=== PATIENT | female | born 1970 | race Caucasian/White ===

== ENCOUNTER 2017-04-13 08:51 | Emergency (ER) | payer BC, SELFPAY ==
[2017-04-13 09:17] VITALS: BP 116/71; PULSE 79; RESP 20; TEMP 37.1; O2SAT 99; BMI 21.4
--- NOTE | 2017-04-13 09:20 | XR_ITS ---
XR cervical spine min 6V Ordering Physician: Farzad Degroot Patient Age: 46 years: Female HISTORY: ITS.REASON: neck pain worsening x1mo after involved dog fight Neck pain TECHNIQUE: Five-view cervical spine series COMPARISON :None FINDINGS : Degenerative disc space narrowing and cervical spondylosis most evident C5-C6 & C6/7 . Developing Anterior marginal osteophytes most notable at these levels. Slight retrolisthesis at both levels most notable at C 5/6 where it measures just less than 2 mm likely accentuated by some mild posterior hypertrophic ridging. C6/7. Scant 1-1 0.5 mm posterior offset C6 on 7 with trace posterior hypertrophic ridging and spondylosis at the mild wispy joint hypertrophy yields mild foraminal encroachment on left more so than right.. Prevertebral soft tissues are normal. Appears satisfactory only noting some mild degenerative facet changes most evident the right at C4/5. Apices the lungs are clear C1-C2 relationships appear normal on the open mouth view. Very slight leftward offset of C1 on C2 merely appears to be rotational in nature. Dense, odontoid intact. -----IMPRESSION 1. . No fracture or acute findings. 2. Degenerative disc changes & cervical spondylosis most evident C5-C6 and C6/7.. Minor degenerative retrolisthesis at each level associated with mild posterior hypertrophic ridging and spondylosis at each level of spurring yields mild foraminal encroachment most notable at the left at C6/7. 3.. Early facet arthropathy most evident the right at C4/5
--- NOTE | 2017-04-13 09:34 | PC.NURSE ---
NOTIFIED RADIOLOGY AT 919
--- NOTE | 2017-04-13 10:07 | HMH.EDUTC ---
[facility] [place] Disposition Clinical Impression: Degenerative cervical spinal stenosis, Muscle spasms of neck Spondylosis of cervical spine Qualifiers: Spinal osteoarthritis complication: unspecified spinal osteoarthritis Qualified Code(s): M47.812 - Spondylosis without myelopathy or radiculopathy, cervical region Disposition: Home, Self-Care Condition on Discharge: Good Instructions: DI for Neck Pain Additional Instructions: Alternative ice/heat. 15-20 minutes 3-4 times a day. Continue with whichever feels better Naproxen twice a day. No additional ibuprofen, motrin, aleve, naproxen, advil with this amount of naproxen. You should take with food. You can take tylenol still if your primary care has told you it is ok to take Soft collar for support unless in shower. Flexeril as needed for muscle spasms. Will cause drowsiness. Do not take if driving, caring for small children or operating machinary. Follow up with primary care immediately to review xray results. ER doctor recommends MRI. Prescriptions: Cyclobenzaprine HCl [Flexeril 10mg tablet] 5 - 10 mg PO Q8HP PRN #14 tab PRN Reason: Muscle Spasm Naproxen 500 mg PO BID #28 tab Referrals: Tabatha Villalta PA [Primary Care Provider] - (Immediately. Call there today and request a follow up this week to discuss symptoms and abnormal c spine xrays. Let them know you were here and we recommended this. Return for new or worsening symptoms if you are not able to get an appointment there) Time of Disposition: 11:51 Medical Decision Making Vital Signs: 04/13/17 09:17 Temperature 98.7 F Temperature Source Temporal Artery Scan Pulse Rate [Brachial] 79 Respiratory Rate 20 Blood Pressure [Right Arm] 116/71 Blood Pressure Mean [Right Arm] 86 Blood Pressure Source [Right Arm] Automatic Cuff Blood Pressure Position [Right Arm] Sitting 02 Sat by Pulse Oximetry 99 Oxygen Delivery Method Room Air Orders (Tests/Meds): ORDERS Category Date Time Status XR cervical spine min 6V Stat Exams 04/13/17 09:20 Taken - Radiology Data #1 Image(s): C-Spine Image Reviewed: Yes I reviewed the patient's radiology image w/the ED provider Discussed w/ KERA Stone: Degenerative changes C5-C7, posterior spondylothesis C4-C5, straightening of Cspine to suggest spasms Recommends NSAIDs, muscle relaxer, soft collar and FU PCP as needs MRI. No further workup recommended today. - Jaquan Inquiry Pt receiving controlled substance: No [facility] [place] HPI - General Stated complaint: pain in neck Time Seen by Provider: 04/13/17 09:16 Mode of Arrival: Ambulatory Source of Information: Patient Limitations: No Limitations Description of Symptoms (Recalled from Triage Doc. by RN): WAS BREAKING UP A DOG FIGHT AND HURT HER NECK WHEN SHE FELL INTO A WALL. 1 MONTH AGO HEENT Symptoms (Recalled from RN notes): No Resp Symptoms (Recalled from RN notes): No Skin Symptoms (Recalled from RN notes): No MS Symptoms (Recalled from RN notes): Yes Functional Status (Recalled from RN notes): NA - History of Present Illness Provider Complaint: c/o pain in posterior neck x 1 month. Radiates to both sides at times. Hx of neck pain off and on for years . Denies ever being seen or having images of neck. One month ago, broke up a dog fight and feels since this time, pain has been getting worse. Worse with movement but no specific movement. Just depends on the day . No improvement with heat or ibuprofen. Denies limited ROM of UEs but does have limited ROM of neck every direction because of the pain most days . Denies N/T. - Related Data Home Medications Medication Instructions Recorded Confirmed ALPRAZolam [Xanax 1mg tab] 1 mg PO BID 04/13/17 04/13/17 Aspirin [Aspirin 81mg chewable 81 mg PO DAILY 04/13/17 04/13/17 tab] Previous Rx's Medication Instructions Recorded Cyclobenzaprine HCl [Flexeril 10mg 5 - 10 mg PO Q8HP PRN #14 tab 04/13/17 tablet] Naproxen 500 mg PO BID #28 tab
== END 2017-04-13 11:52 | disposition home or self-care (01) ==
PROVIDERS: Emergency Provider Nurse Practitioner Family; Family Provider Emergency Medicine; PCP Physician Assistant
DX: M48.02 Spinal stenosis, cervical region (principal); M62.838 Other muscle spasm; M50.30 Other cervical disc degeneration, unspecified cervical region; M25.512 Pain in left shoulder; F41.9 Anxiety disorder, unspecified; F17.210 Nicotine dependence, cigarettes, uncomplicated
CPT/HCPCS: 72052; 99202

== ENCOUNTER 2017-05-25 08:30 | Outpatient (RCR) | payer BC, MEDICARE, SELFPAY ==
--- NOTE | 2017-04-22 15:01 | HMH.PTOPEV ---
Rehab Outpatient Evaluation Rehab OP Evaluation Start: 04/22/17 14:14 Freq: Status: Active Protocol: Document 04/22/17 14:15 FLORINDATHOMPSON (Rec: 04/22/17 14:54 ANNABEL [id number]) Electronically Signed By Raghavendra Coronel PT 04/22/17 14:15 Outpatient Therapy Subjective History Subjective History This is the initial Physical Therapy evalaution for Madonna Lozano. Pt is a 46 y/o female referred to PT for c/o Neck pain and R shoulder pain. Pt reports the R shoulder began to hurt ~3 months ago. Pt reports she was pulling on something when she felt pop in her R Posterior lateral shoulder. Pt rpeorts since then she has noticed significant weakness in R shoulder and intermittant bouts of pain with use. Pt reports her neck pain began ~ 2 months ago. She reports she was trying to break up her dogs and was thrown against a wall. Pt reports xray showed bone spurs and degeneration Chief Complaint Pain Weakness Symptom Type Ache Throb Sharp Dull Symptoms Relieved By Rest/Positioning Symptoms Aggravated By Physical Activity Prior Functional Limitations None Current Functional Limitations None Symptom Description Constant and Continuous Intermittent Activity Dependent Level of pain today (0-10) 5 Pain scale - at its best (0-10) 0 Pain scale - at its worst (0-10) 10 Cervical Eval Palpation Cervical Muscles R Cervical Paraspinal L Cervical Paraspinal R Suboccipital L Suboccipital R Upper Trapezius L Upper Trapezius Cervical/Thoracic Palpation Findings Tenderness Muscle Guarding Passive Joint Mobility Cervical PIVM Dec: L C2/3 R C3/4 L C3/4 R C4/5 L C4/5
--- NOTE | 2017-05-25 09:38 | HMH.RHREAS ---
Rehab Reassessment Rehab OP Re-assessment Start: 05/25/17 09:34 Freq: Status: Active Protocol: Document 05/25/17 09:35 ANNABEL (Rec: 05/25/17 09:37 ANNABEL [id number]) Electronically Signed By Raghavendra Coronel, PT 05/25/17 09:35 Rehab Re-assessment Subjective Subjective Pt reports feeling ~ 50% better Still c/o pain and crunching in neck and pain in R shoulder Pt reprots wishing to get MRI fpor R shoulder Assessment Progress Assessment Slower Than Expected Assessment Notes Pt has progressed but has not had significant subjective decrease in pain Plan Plan pt on hold until return to [place] Frequency of Therapy prn Time and Billing Re-Eval Time 10 Re-Eval Billing Units 1 PHYSICIAN CERTIFICATION: I certify the specified therapy services for Madonna Lozano are required, authorized, and reviewed every 30 days.
== END 2017-05-25 08:31 | disposition home or self-care (01) ==
LOC: PT 08:30
PROVIDERS: Family Provider Emergency Medicine; PCP Physician Assistant; Visit Provider Physician Assistant
DX: M50.90 Cervical disc disorder, unspecified, unspecified cervical region (principal); M25.512 Pain in left shoulder; G89.29 Other chronic pain
CPT/HCPCS: 97010; 97012; 97014; 97016; 97033; 97035; 97110; 97140; 97164; G0283

== ENCOUNTER → 2017-07-06 14:36 | Outpatient (CLI) | payer MEDICARE, BC, SELFPAY ==
--- NOTE | 2017-07-06 14:37 | MR_ITS ---
MR cervical spine wo con HISTORY: Neck pain, pain when turning neck side to side, headache ITS.REASON: Pain radiating into right shoulder ORDERING PHYSICIAN: SUKHDEV Lerner PATIENT AGE: 47 years COMPARISON: 04/13/2017. TECHNIQUE: Standard multiplanar multiecho sequences are performed without contrast. 3-D MIP and myelographic images are also rendered and reviewed FINDINGS: There is slight reversal of the lower cervical lordosis which may be due to patient positioning or muscle spasm. The craniocervical junction has an unremarkable appearance. C2-C3, C3-C4, and C4-C5 have an unremarkable appearance. C5-C6: Degenerative disc disease. 3 mm retrolisthesis of C5 on C6. Bulging disc along with a small broad-based central disc protrusion versus disc osteophyte complex with narrowing of the canal at 9 mm. There is mild facet and ligamentum flavum hypertrophy causing bilateral lateral recess and foraminal narrowing. No cord compression or displacement however there is some posterior angulation of the cord at this level probably from the reversal of lordosis.. C6-C7: Degenerative disc disease with mild bulging disc with uncovertebral hypertrophy with bilateral lateral recess and foraminal narrowing and narrowing of the canal at 10 mm. C7-T1: Unremarkable. IMPRESSION: 1. Multilevel cervical spondylosis with degenerative disc disease along facet ligamentum hypertrophy. Please above for detailed description at each level. 2. Degenerative disc disease C5-C6 with bulging disc along with a small broad-based central disc protrusion versus disc osteophyte complex with narrowing of the canal and bilateral lateral recess and foraminal narrowing. 3. Borderline canal stenosis at C6-7 with degenerative disc disease mild bulging disc and bilateral foraminal and lateral recess narrowing IMPRESSION:
== END ==
PROVIDERS: Family Provider Emergency Medicine; PCP Physician Assistant; Visit Provider Physician Assistant
DX: M54.12 Radiculopathy, cervical region (principal); M25.511 Pain in right shoulder; M54.2 Cervicalgia
CPT/HCPCS: 72141; 76376

== ENCOUNTER → 2017-09-04 09:36 | Outpatient (CLI) | payer MEDICARE, MEDICAID, SELFPAY ==
[2017-09-04 14:47] LABS: Amphetamine/Metha Screen,Urine Negative ng/mL (<1000); Barbiturates Screen,Urine Negative ng/mL (<200); Benzodiazepines Screen,Urine Negative ng/mL (200); Cannabinoid Screen,Urine Negative ng/mL (<50); Cocaine Screen,Urine Negative ng/g (<300); Methadone Screen,Urine Negative ng/mL (<300); Opiate Screen,Urine Negative ng/mL (<300); Phencyclidine Screen,Urine Negative ng/mL (<25)
== END ==
PROVIDERS: Visit Provider Nurse Practitioner Family
DX: Z79.899 Other long term (current) drug therapy (principal)
CPT/HCPCS: 80305

== ENCOUNTER → 2018-06-17 13:43 | Outpatient (CLI) | payer MEDICARE, MEDICAID, SELFPAY ==
[2018-06-17 13:56] LABS: Basophils # 0.1 K/mm3 (0-0.2); Eosinophils # 0.1 K/mm3 (0.0-0.4); Eosinophils % 1.2 % (0.1-12.0); Hematocrit 47.9 % (37.0-47.0); Hemoglobin 15.4 g/dL (12.2-16.2); Lymphocytes # 2.4 K/mm3 (0.7-4.5); Lymphocytes % 42.1 % (10-50); Mean Corpuscular HGB Conc 32.2 g/dL (31.8-35.4); Mean Corpuscular Hemoglobin 29.3 pg (27.0-31.2); Mean Corpuscular Volume 91.2 fl (81-99); Mean Platelet Volume 8.1 fl (7.4-10.4); Monocytes # 0.2 K/mm3 (0.1-1.0); Monocytes % 3.8 % (1.7-9.3); Neutrophils # 2.9 K/mm3 (1.8-7.8); Platelet Count 274 K/mm3 (142-424); Red Blood Count 5.25 M/mm3 (4.20-5.40); Red Cell Distribution Width 14.2 % (11.5-17.5); White Blood Count 5.6 K/mm3 (4.8-10.8)
[2018-06-17 14:29] LABS: Alanine Aminotransferase 23 U/L (12-78); Albumin Level 3.9 gm/dL (3.4-5.0); Albumin/Globulin Ratio 1.1 (1.1-1.8); Alkaline Phosphatase 67 U/L (46-116); Anion Gap 15.5 mEq/L (5-15); Aspartate Amino Transferase 15 U/L (15-37); Bilirubin,Total 0.2 mg/dL (0.2-1.0); Blood Urea Nitrogen 11 mg/dL (7-18); Calcium 9.1 mg/dL (8.5-10.1); Carbon Dioxide 27 mmol/L (21.0-32.0); Chloride 102 mmol/L (98-107); Chol/HDL Ratio 4.5 (1-3.5); Cholesterol 213 mg/dL (140-200); Creatinine,Serum 0.82 mg/dL (0.55-1.02); Estimated Glomerular Filt Rate 74 ml/min (>60); GFR (African American) 89 ML/MIN (>60); Globulin 3.6 gm/dl (1.3-3.2); Glucose 105 mg/dL (74-106); HDL Cholesterol 47 mg/dL (29-89); LDL Cholesterol 143 mg/dL (0-130); Potassium 4.5 mmoL/L (3.5-5.1); Sodium 140 mmol/L (136-145); Total Protein,Serum 7.5 gm/dL (6.4-8.2); Triglycerides 115 mg/dL (30-200); VLDL Cholesterol 23 mg/dL (0-40)
[2018-06-18 09:01] LABS: Vitamin D 25 Hydroxy 37.1 ng/mL (30.0-100.0)
== END ==
PROVIDERS: Visit Provider Physician Assistant
DX: E78.5 Hyperlipidemia, unspecified (principal)
CPT/HCPCS: 80053; 80061; 82652; 84436; 84443; 85025

== ENCOUNTER → 2018-07-05 09:43 | Outpatient (POV) | payer MEDICARE, SELFPAY ==
[2018-07-05 10:07] VITALS: BP 139/90; PULSE 93; RESP 18; O2SAT 98
--- NOTE | 2018-07-06 08:25 | HMH.PMCON ---
Assessment and Plan (1) Myofascial pain syndrome Current visit: Yes Status: Chronic Category: Medical Code(s): M79.18 - Myalgia, other site (2) Neck Pain Current visit: No Status: Chronic Category: Medical Code(s): M54.2 - Cervicalgia (3) Cervical radiculopathy Current visit: No Status: Chronic Category: Medical Code(s): M54.12 - Radiculopathy, cervical region (4) Degenerative cervical spinal stenosis Current visit: No Status: Chronic Category: Medical Code(s): M48.02 - Spinal stenosis, cervical region (5) Spondylosis of cervical spine Current visit: No Status: Chronic Qualifiers: Spinal osteoarthritis complication: with radiculopathy Qualified Code(s): M47.22 - Other spondylosis with radiculopathy, cervical region Category: Medical Code(s): M47.812 - Spondylosis without myelopathy or radiculopathy, cervical region - Assessment and plan all Dx Assessment and Plan for all problems:: We will schedule trigger point injections for the patient bilateral cervical paraspinous and trapezius muscles. I will follow-up with the patient after this and reassess her symptoms. Patient is not a narcotic candidate due to her marijuana use. Dr. Milton has reviewed this note and agrees with this plan of care. This note was dictated using voice recognition software and may contain errors or omissions HPI - Data of Consult Consult date: 07/05/18 Requesting Physician: Melony Del Rio APRN Primary Care Provider: SUKHDEV Lezama - Consult Narrative Reason for consult: Neck pain History of present illness: Ms. Lozano is a 48 year old female presents today for consultation in regards to her neck pain. Patient had a accident in who began to have neck pain last year. She states all activity increases her pain well smoking marijuana in a neck brace at night decrease her pain. She rates her pain 5 out of 10. Patient has tried and failed epidural injections along with physical therapy and massage therapy. She is tried multiple medications however she states that marijuana is the best medication for her at this time. She is asking for a neck brace today stating her old neck brace has molded. . CC: Melony Del Rio APRN [facility] History I have reviewed the patient's past medical history: Yes Medical History: Reports:: Anxiety, Hyperlipidemia, Hypertension Denies:: Diabetes Mellitus Type 1, Diabetes Mellitus Type 2 *Have you ever received a pneumonia vaccine?: No Other Medical History: Reports: Other Amputation: No Fractures: No - *Social History Smoking Status: Current every day smoker Tobacco Type: cigarettes # Packs/Day (cigarettes): 1 Alcohol Intake: never Substance Use Type: marijuana Last Used Substance: unknown *Occupational Status:: disabled Housing: house Household Members: other *Travel in the last 8 weeks: None - Psychiatric History Expresses thoughts of harming self/others: None Suicide Plan Description: No Plan Pschychiatric History:: Reports:: Anxiety Family Hx:: Cancer, Coronary Artery Disease Review of Systems - Review of Systems ROS General: no recent weight change, no fever, no sleep disturbances Respiratory: no cough, no shortness of air, no recurring pulmonary infections Cardiovascular/Peripheral Vascular: No chest pain, No palpitations, no edema, no shortness of breath. Gastrointestinal: no incontinence, normal bowel movements reported Genitourinary: no incontinence Musculoskeletal: Neck pain, arm pain and myofascial pain Psychiatric: normal mood/ affect Neurological: [denies weakness in extremities], [denies balance issues] Meds Home Medications Medication Instructions Recorded Confirmed Type Aspirin [Aspirin 81mg chewable 81 mg PO DAILY 04/13/17 06/17/18 History tab] cyclobenzaprine 10 mg tablet 10 mg PO Q8H 04/30/17 06/17/18 History amlodipine 10 mg tablet 10 mg PO DAILY #90 tab 10/22/17 06/17/18 Rx albuterol s
--- NOTE | 2018-07-06 08:28 | P.CONS_ITS ---
Assessment and Plan (1) Myofascial pain syndrome Current visit: Yes Status: Chronic Category: Medical Code(s): M79.18 - Myalgia, other site (2) Neck Pain Current visit: No Status: Chronic Category: Medical Code(s): M54.2 - Cervicalgia (3) Cervical radiculopathy Current visit: No Status: Chronic Category: Medical Code(s): M54.12 - Radiculopathy, cervical region (4) Degenerative cervical spinal stenosis Current visit: No Status: Chronic Category: Medical Code(s): M48.02 - Spinal stenosis, cervical region (5) Spondylosis of cervical spine Current visit: No Status: Chronic Qualifiers: Spinal osteoarthritis complication: with radiculopathy Qualified Code(s): M47.22 - Other spondylosis with radiculopathy, cervical region Category: Medical Code(s): M47.812 - Spondylosis without myelopathy or radiculopathy, cervical region - Assessment and plan all Dx Assessment and Plan for all problems:: We will schedule trigger point injections for the patient bilateral cervical paraspinous and trapezius muscles. I will follow-up with the patient after this and reassess her symptoms. Patient is not a narcotic candidate due to her marijuana use. Dr. Milton has reviewed this note and agrees with this plan of care. This note was dictated using voice recognition software and may contain errors or omissions HPI - Data of Consult Consult date: 07/05/18 Requesting Physician: Melony Del Rio APRN Primary Care Provider: SUKHDEV Lezama - Consult Narrative Reason for consult: Neck pain History of present illness: Ms. Lozano is a 48 year old female presents today for consultation in regards to her neck pain. Patient had a accident in who began to have neck pain last year. She states all activity increases her pain well smoking marijuana in a neck brace at night decrease her pain. She rates her pain 5 out of 10. Patient has tried and failed epidural injections along with physical therapy and massage therapy. She is tried multiple medications however she states that marijuana is the best medication for her at this time. She is asking for a neck brace today stating her old neck brace has molded. . CC: Melony Del Rio APRN [facility] History I have reviewed the patient's past medical history: Yes Medical History: Reports:: Anxiety, Hyperlipidemia, Hypertension Denies:: Diabetes Mellitus Type 1, Diabetes Mellitus Type 2 *Have you ever received a pneumonia vaccine?: No Other Medical History: Reports: Other Amputation: No Fractures: No - *Social History Smoking Status: Current every day smoker Tobacco Type: cigarettes # Packs/Day (cigarettes): 1 Alcohol Intake: never Substance Use Type: marijuana Last Used Substance: unknown *Occupational Status:: disabled Housing: house Household Members: other *Travel in the last 8 weeks: None - Psychiatric History Expresses thoughts of harming self/others: None Suicide Plan Description: No Plan Pschychiatric History:: Reports:: Anxiety Family Hx:: Cancer, Coronary Artery Disease Review of Systems - Review of Systems ROS General: no recent weight change, no fever, no sleep disturbances Respiratory: no cough, no shortness of air, no recurring pulmonary infections Cardiovascular/Peripheral Vascular: No chest pain, No palpitations, no edema, no shortness of breath. Gastrointestinal: no incontinence, normal bowel movements reported Genitourinary: no incontinence Musculoskeletal: Neck pain, arm pain and myofascial pain Psyc
== END ==
PROVIDERS: PCP Physician Assistant; Visit Provider Clinical Nurse Specialist Family Health
DX: M79.18 Myalgia, other site (principal); M48.02 Spinal stenosis, cervical region; M47.22 Other spondylosis with radiculopathy, cervical region
CPT/HCPCS: 99202

== ENCOUNTER → 2018-07-29 16:34 | Outpatient (CLI) | payer MEDICARE, SELFPAY ==
--- NOTE | 2018-07-29 16:39 | MM_ITS ---
MM Dig SC mamm implant BI CAD CAD Screening COMPARISON: July 2016 , June 2014 INDICATION: Bilateral breast implants. Routine screening mammogram No hormones. No new complaints. Noncontributory family history TECHNIQUE: Damien technique utilized. CC & MLO images were obtained of the breast tissue overlying implant, as well as a second set of images including the breast implant. Mammography is inherently limited due to the implants is a could obscure areas of breast R2 CAD reviewed. . FINDINGS: The bilateral breast implants right again noted. These do inherently decrease sensitivity of mammography as they partially obscures portions breast. Jacquelyn technique utilized to optimize visualization of overlying, remaining breast tissue bilaterally. Overall the breast appear stable with no significant new areas of concern in either breast. No significant interval change since 2016,. Nor 2014 . Bilateral follow-up in one year recommended. Bilateral Implants appear stable contour bilaterally with normal contour as well. . Follow-up in one year recommended, adequate. IMPRESSION:...... 1.. Stable bilateral mammogram. No areas of concern. 2. Stable appearing bilateral breast implants on mammography.. 3. Bilateral follow-up in one year recommended BI-RADS Category: 1 Negative RECOMMENDED FOLLOW-UP: 1YR - 1 YEAR FOLLOW-UP (A letter has been sent to the patient regarding results of the study.)
== END ==
PROVIDERS: PCP Physician Assistant; Visit Provider Physician Assistant
DX: Z12.31 Encounter for screening mammogram for malignant neoplasm of breast (principal)
CPT/HCPCS: 77067

== ENCOUNTER → 2018-08-03 11:28 | Outpatient (POV) | payer MEDICARE, SELFPAY ==
--- NOTE | 2018-08-03 11:41 | HMH.PAINSOAP ---
[facility] Pain Management SOAP Note Subjective:: Patient is a pleasant 48-year-old white female who presents today for follow-up after trigger point injections. Patient got 2 days relief. Patient and I discussed dry needling she is interested in pursuing this. I believe it would be beneficial she is also having right shoulder pain. We will send her for an x-ray today. I will see her back in 3 weeks reassess her symptoms at that time she is been instructed to call the office if she has any issues prior to her next appointment. She rates her pain a 7 out of 10 today. Patient utilizes bracing and marijuana to help with pain. She is not a narcotic candidate. ROS General: no recent weight change, no fever, no sleep disturbances Respiratory: no cough, no shortness of air, no recurring pulmonary infections Cardiovascular/Peripheral Vascular: No chest pain, No palpitations, no edema, no shortness of breath. Gastrointestinal: no incontinence, normal bowel movements reported Genitourinary: no incontinence Musculoskeletal: Neck pain, right shoulder pain Psychiatric: normal mood/ affect Neurological: [denies weakness in extremities], [denies balance issues] Objective:: Physical Exam General: Alert and oriented x3, no acute distress, pleasant and cooperative Lungs: Resps E/U, Symmetrical chest expansion, Eyes: PERRL Musculoskeletal: Flexion and extension of cervical spine somewhat guarded secondary to pain, deep tendon reflexes normal, strength in upper and lower extremities [5/5], normal gait noted, palpable trigger points cervical paraspinous, tenderness over right shoulder Neurological: speech clear, jukebox coin collector equal, no gross sensory deficits Assessment:: Myofascial pain syndrome, right shoulder pain Plan:: We will send the patient for dry needling back to 3 weeks reassess her symptoms at that time also send her for an x-ray to help determine any pathology in her right shoulder. She is been instructed to call the office if she has any issues prior to her next appointment Dr. Milton has reviewed this note and agrees with this plan of care. This note was dictated using voice recognition software and may contain errors or omissions
--- NOTE | 2018-08-03 11:55 | XR_ITS ---
XR shoulder RT min 2V HISTORY: ITS.REASON: RT SHOULDER PAIN, ORDERING PHYSICIAN: Melony Del Rio APRN PATIENT AGE: 48 years Comparison: None FINDINGS: No fracture or dislocation. No lytic or blastic change. There is normal mineralization. The joint spaces are well-preserved. No significant degenerative/arthritic changes. No erosive changes evident. IMPRESSION: Negative, no acute finding
[2018-08-03 12:14] VITALS: BP 127/89; PULSE 80; RESP 18; O2SAT 98; BMI 24.2
== END ==
PROVIDERS: PCP Physician Assistant; Visit Provider Clinical Nurse Specialist Family Health
DX: M79.18 Myalgia, other site (principal); M25.511 Pain in right shoulder
CPT/HCPCS: 73030; 99212

== ENCOUNTER 2018-08-20 09:00 | Outpatient (RCR) | payer MEDICARE, SELFPAY ==
--- NOTE | 2018-08-06 09:52 | HMH.PTOPEV ---
PT Outpatient Evaluation Rehab PT Outpatient Evaluation Start: 08/06/18 09:31 Freq: Status: Active Protocol: Document 08/06/18 09:31 ECTOR (Rec: 08/06/18 09:52 ECTOR [id number]) Electronically Signed By Elder Chandler, PT 08/06/18 09:31 Outpatient Therapy Subjective History Subjective History Pt reports chronic neck pain since sustaining a whiplash injury while trying to diffuse a dog fight ~1 yr ago. Pt reports L>R sided neck pain, w /intermittent N&T in L hand/ tricep area. Chief Complaint Pain,Paresthesia Symptom Type Ache,Throb Symptoms Relieved By Nothing Symptoms Aggravated By Physical Activity,Twisting, Lifting Prior Functional Limitations Reaching,Lifting,Housework Current Functional Limitations Reaching,Lifting,Housework, Driving Symptom Description Constant and Continuous Level of pain today (0-10) 10 Pain scale - at its best (0-10) 10 Pain scale - at its worst (0-10) 10 Cervical Eval Palpation Cervical Muscles R Cervical Paraspinal,L Cervical Paraspinal,R Suboccipital,L Suboccipital,R CT Junction,L CT Junction,R Upper Trapezius,L Upper Trapezius Cervical/Thoracic Palpation Findings Tenderness,Spasm,Trigger Point ,Muscle Guarding Posture Head/C-Spine Posture Sitting Position Flexed Head/C-Spine Posture Standing Position Flexed Flexibility Deficits Upper Trapezius Muscle Length (R) Moderate Tightness,(L) Moderate Tightness Levaetor Scapulae Muscle Length (R) Mild Tightness,(L) Mild Tightness Scalene Group Muscle Length (R) Moderate Tightness,(L) Moderate Tightness Passive Joint Mobility Cervical PIVM Dec: R OA L OA R AA L AA R C2/3 L C2/3 R C3/4 L C3/4 R C4/5 L C4/5 R C5/6 L C5/6 R C6/7 L C6/7 R C7/T1
== END 2018-08-20 09:05 | disposition home or self-care (01) ==
LOC: PT 09:00
PROVIDERS: Visit Provider Clinical Nurse Specialist Family Health
DX: M25.511 Pain in right shoulder (principal); M79.18 Myalgia, other site
CPT/HCPCS: 97010; 97014; 97035; 97110; 97140; 97163; G0283

== ENCOUNTER → 2018-08-24 10:19 | Outpatient (CLI) | payer MEDICARE, MEDICAID, SELFPAY ==
[2018-08-24 11:58] LABS: T4 (Thyroxine) 6.5 ug/dl (4.7-13.3); Thyroid Stimulating Hormone 1.42 uIU/ml (0.358-3.740); Triiodothryronine (T3) Uptake 31 % (31-39)
[2018-08-27 06:24] LABS: Estradiol <5.0 pg/mL (.); FSH 96.9 mIU/mL (.); LH 50.7 mIU/mL (.); Triiodothyronine (T3) Free 3.3 pg/mL (2.0-4.4)
== END ==
PROVIDERS: Visit Provider Nurse Practitioner Obstetrics & Gynecology
DX: N95.1 Menopausal and female climacteric states (principal); R53.83 Other fatigue; N92.6 Irregular menstruation, unspecified
CPT/HCPCS: 36415; 82670; 83001; 83002; 84436; 84443; 84479; 84481; 99212

== ENCOUNTER → 2018-08-24 10:33 | Outpatient (POV) | payer MEDICARE, MEDICAID, SELFPAY ==
[2018-08-24 11:08] VITALS: BP 140/85; PULSE 72; RESP 18; O2SAT 98; BMI 24.0
--- NOTE | 2018-08-24 11:47 | P.CONS_ITS ---
[facility] Pain Management SOAP Note Subjective:: Is a pleasant 48-year-old white female who presents today for follow-up after healing. She complains of neck pain radiating to her right shoulder area. She has also had trigger point injections in the past. Her pain a 10 out of 10 today. He says she has tried a home stretching program, as well as oral medications of cyclobenzaprine, buspar, venlaxafine, and meloxicam. She is currently on gabapentin 300 mg p.o. 3 times daily. She has radiation to bilateral arms. ROS General: no recent weight change, no fever, no sleep disturbances Respiratory: no cough, no shortness of air, no recurring pulmonary infections Cardiovascular/Peripheral Vascular: No chest pain, No palpitations, no edema, no shortness of breath. Gastrointestinal: no incontinence, normal bowel movements reported Genitourinary: no incontinence Musculoskeletal: Neck pain, right shoulder pain Psychiatric: normal mood/ affect Neurological: [denies weakness in extremities], [denies balance issues] Objective:: Physical Exam General: Alert and oriented x3, no acute distress, pleasant and cooperative, Lungs: Resps E/U, Symmetrical chest expansion, Eyes: PERRL Musculoskeletal: Flexion and extension of cervical spine somewhat guarded secondary to pain, deep tendon reflexes normal, strength in upper and lower extremities [5/5], noted. Tenderness of her right shoulder. Tenderness noted to cervical paraspinous. Neurological: speech clear, ambulatory care nurse equal, no gross sensory deficits Assessment:: Myofascial pain syndrome, right shoulder pain degenerative disc disease cervical spine with cervical radiculopathy Plan:: I believe the patient would benefit from a cervical epidural injection. We will schedule C5-C6 cervical epidural steroid injection for the patient. She is not on any anticoagulation therapy. We discussed the process in depth today and she would like to try the injection. We also discussed anti-inflammatories. The patient will continue a home stretching program. We will start the patient on Lyrica 75 mg p.o. every other night for 1 week, nightly for one week, and on week three, she will take it two times daily. Patient has been instructed to call the office if she has any turns prior to her next appointment. Dr. Milton has reviewed this note and agrees with this plan of care. This note was dictated using voice recognition software and may contain errors or omissions
== END ==
PROVIDERS: PCP Physician Assistant; Visit Provider Clinical Nurse Specialist Family Health
DX: M79.18 Myalgia, other site (principal); M25.511 Pain in right shoulder; M50.10 Cervical disc disorder with radiculopathy, unspecified cervical region
CPT/HCPCS: 36415; 82670; 83001; 83002; 84436; 84443; 84479; 84481; 99212

== ENCOUNTER → 2018-09-20 15:12 | Outpatient (POV) | payer MEDICARE, SELFPAY ==
[2018-09-20 15:20] VITALS: BP 136/82; PULSE 70; RESP 18; O2SAT 98; BMI 24.0
--- NOTE | 2018-09-20 15:37 | HMH.PAINSOAP ---
[facility] Pain Management SOAP Note Subjective:: Patient is a pleasant 48-year-old white female who presents today for follow-up after cervical epidural steroid injection of C5-C6. Patient rates her pain a 9 out of 10 today. She reports that she had about 50% relief for 2 days and the pain returned. She complains of pain to arm as well. She has tried anti-inflammatories, along with a stretching program. She is inquiring about a spinal cord stimulator today. Review of Systems General: No recent weight changes, no fever, no sleep disturbances Respiratory: No cough, no shortness of air, no recurring pulmonary infections Cardiovascular/peripheral vascular: No chest pain, no palpitations, no edema, no shortness of breath Gastrointestinal: No new onset incontinence, normal bowel movements reported Genitourinary: No new onset incontinence Musculoskeletal: Neck pain Psychiatric: Normal mood/affect Neurological: [Denies weakness in extremities], [denies balance issues] Objective:: Physical exam General: Alert and oriented x3, no acute distress, pleasant and cooperative, [on room air] Lungs: Respirations even and unlabored, symmetrical chest expansion Eyes: PERRL Musculoskeletal: Flexion and extension of cervical spine somewhat guarded secondary to pain, deep tendon reflexes normal, strength in upper and lower extremities [5/5], normal gait noted Neurological: Speech clear, dietary services director equal, no gross sensory deficit Assessment:: 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 The patient will be scheduled for a psychological evaluation and we will see her back after that. She is been instructed to call the office if she has any concerns prior to her next appointment. She is not on any anticoagulation therapy Dr. Milton has reviewed this note and agrees with this plan of care. This note was dictated using voice recognition software and make contain errors or omissions.
--- NOTE | 2018-09-20 15:40 | P.CONS_ITS ---
[facility] Pain Management SOAP Note Subjective:: Patient is a pleasant 48-year-old white female who presents today for follow-up after cervical epidural steroid injection of C5-C6. Patient rates her pain a 9 out of 10 today. She reports that she had about 50% relief for 2 days and the pain returned. She complains of pain to arm as well. She has tried anti- inflammatories, along with a stretching program. She is inquiring about a spinal cord stimulator today. Review of Systems General: No recent weight changes, no fever, no sleep disturbances Respiratory: No cough, no shortness of air, no recurring pulmonary infections Cardiovascular/peripheral vascular: No chest pain, no palpitations, no edema, no shortness of breath Gastrointestinal: No new onset incontinence, normal bowel movements reported Genitourinary: No new onset incontinence Musculoskeletal: Neck pain Psychiatric: Normal mood/affect Neurological: [Denies weakness in extremities], [denies balance issues] Objective:: Physical exam General: Alert and oriented x3, no acute distress, pleasant and cooperative, [on room air] Lungs: Respirations even and unlabored, symmetrical chest expansion Eyes: PERRL Musculoskeletal: Flexion and extension of cervical spine somewhat guarded secondary to pain, deep tendon reflexes normal, strength in upper and lower extremities [5/5], normal gait noted Neurological: Speech clear, antisqueak chalker equal, no gross sensory deficit Assessment:: 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 The patient will be scheduled for a psychological evaluation and we will see her back after that. She is been instructed to call the office if she has any concerns prior to her next appointment. She is not on any anticoagulation therapy Dr. Milton has reviewed this note and agrees with this plan of care. This note was dictated using voice recognition software and make contain errors or omissions.
== END ==
PROVIDERS: PCP Physician Assistant; Visit Provider Clinical Nurse Specialist Family Health
DX: M50.10 Cervical disc disorder with radiculopathy, unspecified cervical region (principal)
CPT/HCPCS: 99212

== ENCOUNTER → 2018-10-19 08:45 | Outpatient (CLI) | payer MEDICARE, SELFPAY ==
[2018-10-19 09:27] LABS: Basophils % 0.5 % (0.1-2.0); Eosinophils # 0.1 K/mm3 (0.0-0.4); Hematocrit 42.2 % (37.0-47.0); Hemoglobin 13.2 g/dL (12.2-16.2); Lymphocytes # 2.3 K/mm3 (0.7-4.5); Lymphocytes % 35.8 % (10-50); Mean Corpuscular HGB Conc 31.2 g/dL (31.8-35.4); Mean Corpuscular Hemoglobin 29.1 pg (27.0-31.2); Mean Corpuscular Volume 93.1 fl (81-99); Mean Platelet Volume 7.7 fl (7.4-10.4); Monocytes # 0.2 K/mm3 (0.1-1.0); Monocytes % 3.5 % (1.7-9.3); Neutrophils # 3.8 K/mm3 (1.8-7.8); Neutrophils % 58.1 % (37.0-80.0); Platelet Count 287 K/mm3 (142-424); Red Blood Count 4.53 M/mm3 (4.20-5.40); Red Cell Distribution Width 14.3 % (11.5-17.5); White Blood Count 6.5 K/mm3 (4.8-10.8)
[2018-10-19 09:57] LABS: Alanine Aminotransferase 54 U/L (12-78); Albumin Level 3.3 gm/dL (3.4-5.0); Alkaline Phosphatase 70 U/L (46-116); Anion Gap 10.1 mEq/L (5-15); Aspartate Amino Transferase 31 U/L (15-37); Bilirubin,Total 0.3 mg/dL (0.2-1.0); Blood Urea Nitrogen 16 mg/dL (7-18); Calcium 9.1 mg/dL (8.5-10.1); Carbon Dioxide 28 mmol/L (21.0-32.0); Chloride 106 mmol/L (98-107); Creatinine,Serum 0.81 mg/dL (0.55-1.02); Estimated Glomerular Filt Rate 75 ml/min (>60); GFR (African American) 91 ML/MIN (>60); Globulin 3.2 gm/dl (1.3-3.2); Glucose 107 mg/dL (74-106); Potassium 4.1 mmoL/L (3.5-5.1); Sodium 140 mmol/L (136-145); Total Protein,Serum 6.5 gm/dL (6.4-8.2)
== END ==
PROVIDERS: Visit Provider Anesthesiology
DX: Z01.818 Encounter for other preprocedural examination (principal)
CPT/HCPCS: 36415; 80053; 85025

== ENCOUNTER → 2018-10-26 10:54 | Outpatient (POV) | payer MEDICARE, SELFPAY ==
[2018-10-26 11:41] VITALS: BP 139/82; PULSE 78; RESP 18; O2SAT 98; BMI 24.0
--- NOTE | 2018-10-26 12:23 | HMH.PMPROC ---
- Procedure Date: 10/26/18 Time: 12:23 Anesthesiologist:: Melony Del Rio APRN Complications:: None Pre-procedure Diagnosis:: Degenerative disc disease cervical spinal cervical radiculopathy symptoms degenerative disc disease lumbar spine with postlaminectomy syndrome and lumbar radiculopathy symptoms Post-procedure Diagnosis:: Same Indications for Procedure:: She is a pleasant 48-year-old white female who presents today for the end of her stimulator trial. Patient states she got 50 to 80% relief of her symptoms overall did extremely well. Leads were placed at C4 C5-C6-C7 and a second lead was placed at T7-T8-T9 vertebral bodies. Patient would like to move forward with a permanent implant. She states she has much more functional. Physical Exam General: Alert and oriented x3, no acute distress, pleasant and cooperative, [on room air] Lungs: Resps E/U, Symmetrical chest expansion, Eyes: PERRL Musculoskeletal: Flexion and extension of cervical and lumbar spine somewhat guarded secondary to pain, deep tendon reflexes normal, strength in upper and lower extremities [5/5], slightly antalgic gait noted Neurological: speech clear, tube closing machine operator equal, no gross sensory deficits Procedure Details:: After informed consent was obtained the risk and benefits of the procedure were explained to the patient. Patient's vital signs were monitored with noninvasive blood pressure cuff and pulse oximeter. Patient's tape was removed on her back. The area in which her epidural leads entered was examined to ensure no redness or draining. Patient leads were then removed in sterile fashion. Patient then had Band-Aids placed over the puncture sites. Patient tolerated the procedure well. Plan and Disposition:: Given the efficacy of the trial we will move forward with a permanent implant. Again patient got more functionality and 50 to 80% pain relief depending on the day and activity.. Dr. Milton has reviewed this note and agrees with this plan of care. This note was dictated using voice recognition software and may contain errors or omissions
== END ==
PROVIDERS: PCP Physician Assistant; Visit Provider Clinical Nurse Specialist Family Health
DX: M50.10 Cervical disc disorder with radiculopathy, unspecified cervical region (principal); M96.1 Postlaminectomy syndrome, not elsewhere classified; M54.16 Radiculopathy, lumbar region
CPT/HCPCS: 99212

== ENCOUNTER → 2018-11-09 09:49 | Outpatient (POV) | payer MEDICARE, SELFPAY ==
[2018-11-09 10:15] VITALS: BP 143/90; PULSE 85; RESP 18; O2SAT 98; BMI 24.0
--- NOTE | 2018-11-09 10:28 | HMH.PAINSOAP ---
[facility] Pain Management SOAP Note Subjective:: Patient is a pleasant 48-year-old white female who presents today for follow-up after neurostimulator placement. Overall patient is doing well her only complaint today is a headache. She rates her headache a 7 out of 10 it is alleviated by her lying down. Patient states her typical neck and back pain has been relieved. She will be reprogrammed today. Her stitches are in place her incisions look good and intact no sign symptoms of infection. ROS General: no recent weight change, no fever, no sleep disturbances Respiratory: no cough, no shortness of air, no recurring pulmonary infections Cardiovascular/Peripheral Vascular: No chest pain, No palpitations, no edema, no shortness of breath. Gastrointestinal: no incontinence, normal bowel movements reported Genitourinary: no incontinence Musculoskeletal: Neck pain, back pain Psychiatric: normal mood/ affect Neurological: [denies weakness in extremities], [denies balance issues] Objective:: Physical Exam General: Alert and oriented x3, no acute distress, pleasant and cooperative, [on room air] Lungs: Resps E/U, Symmetrical chest expansion, Eyes: PERRL Musculoskeletal: Flexion and extension of cervical and lumbar spine somewhat guarded secondary to pain, deep tendon reflexes normal, strength in upper and lower extremities [5/5], slightly antalgic gait noted Neurological: speech clear, diesel engine tester equal, no gross sensory deficits Assessment:: Degenerative disc disease cervical spinal cervical radiculopathy symptoms and degenerative disc disease lumbar spine with post laminectomy syndrome of the lumbar spine with lumbar radiculopathy Plan:: We will see the patient back in 2 weeks for stitch removal. We will send her for a liter of fluid and a injection of Toradol 30 mg. This is to help with her headache. Patient's been instructed to call the office if she has any issues prior to her next appointment. Dr. Milton has reviewed this note and agrees with this plan of care. This note was dictated using voice recognition software and may contain errors or omissions Pain Management Hx Components *Have you ever received a pneumonia vaccine?: No *Have you received a flu vaccine this season?: Yes - *Social History *Occupational Status:: other *Travel in the last 8 weeks: None
--- NOTE | 2018-11-09 10:31 | P.CONS_ITS ---
[facility] Pain Management SOAP Note Subjective:: Patient is a pleasant 48-year-old white female who presents today for follow-up after neurostimulator placement. Overall patient is doing well her only complaint today is a headache. She rates her headache a 7 out of 10 it is alleviated by her lying down. Patient states her typical neck and back pain has been relieved. She will be reprogrammed today. Her stitches are in place her incisions look good and intact no sign symptoms of infection. ROS General: no recent weight change, no fever, no sleep disturbances Respiratory: no cough, no shortness of air, no recurring pulmonary infections Cardiovascular/Peripheral Vascular: No chest pain, No palpitations, no edema, no shortness of breath. Gastrointestinal: no incontinence, normal bowel movements reported Genitourinary: no incontinence Musculoskeletal: Neck pain, back pain Psychiatric: normal mood/ affect Neurological: [denies weakness in extremities], [denies balance issues] Objective:: Physical Exam General: Alert and oriented x3, no acute distress, pleasant and cooperative, [on room air] Lungs: Resps E/U, Symmetrical chest expansion, Eyes: PERRL Musculoskeletal: Flexion and extension of cervical and lumbar spine somewhat guarded secondary to pain, deep tendon reflexes normal, strength in upper and lower extremities [5/5], slightly antalgic gait noted Neurological: speech clear, chief airline radio operator equal, no gross sensory deficits Assessment:: Degenerative disc disease cervical spinal cervical radiculopathy symptoms and degenerative disc disease lumbar spine with post laminectomy syndrome of the lumbar spine with lumbar radiculopathy Plan:: We will see the patient back in 2 weeks for stitch removal. We will send her for a liter of fluid and a injection of Toradol 30 mg. This is to help with her headache. Patient's been instructed to call the office if she has any issues prior to her next appointment. Dr. Milton has reviewed this note and agrees with this plan of care. This note was dictated using voice recognition software and may contain errors or omissions Pain Management Hx Components *Have you ever received a pneumonia vaccine?: No *Have you received a flu vaccine this season?: Yes - *Social History *Occupational Status:: other *Travel in the last 8 weeks: None
== END ==
PROVIDERS: PCP Physician Assistant; Visit Provider Clinical Nurse Specialist Family Health
DX: M50.10 Cervical disc disorder with radiculopathy, unspecified cervical region (principal); M51.36 Other intervertebral disc degeneration, lumbar region; M96.1 Postlaminectomy syndrome, not elsewhere classified
CPT/HCPCS: 96360; 96375; 99212

== ENCOUNTER 2018-11-09 11:08 | Outpatient (CLI) | payer MEDICARE, SELFPAY ==
[2018-11-09 11:42] VITALS: RESP 18
[2018-11-09 11:43] VITALS: BP 132/79; PULSE 82; RESP 18; TEMP 36.6; O2SAT 97
[2018-11-09 12:19] VITALS: BP 132/82; PULSE 72; RESP 18; TEMP 36.6; O2SAT 97
[2018-11-09 12:48] VITALS: BP 139/85; PULSE 64; RESP 18; TEMP 36.6; O2SAT 97
== END 2018-11-09 12:50 | disposition home or self-care (01) ==
LOC: INF 11:10
PROVIDERS: PCP Physician Assistant; Visit Provider Clinical Nurse Specialist Family Health
DX: G97.1 Other reaction to spinal and lumbar puncture (principal); R51 Headache
CPT/HCPCS: 96360; 96374; 96375; 99212

== ENCOUNTER → 2018-11-23 09:16 | Outpatient (POV) | payer MEDICARE, SELFPAY ==
--- NOTE | 2018-11-23 10:06 | P.CONS_ITS ---
[facility] Pain Management SOAP Note Subjective:: Patient is a pleasant 48-year-old white female who presents today for follow-up after neurostimulator placement. Patient stitches was removed today. Patient incisions are well-healed and approximated. Patient has no sign symptoms of infection her spinal headache has resolved. She rates her pain a 4 out of 10. Her pain is typically in her neck and back however is been relieved significantly. Patient is having a little bit of right SI joint issues. We discussed SI joint stretches along with an SI joint belt. She is going to look into this. She will need reprogram by the patient accounting representative. ROS General: no recent weight change, no fever, no sleep disturbances Respiratory: no cough, no shortness of air, no recurring pulmonary infections Cardiovascular/Peripheral Vascular: No chest pain, No palpitations, no edema, no shortness of breath. Gastrointestinal: no incontinence, normal bowel movements reported Genitourinary: no incontinence Musculoskeletal: Neck pain, back pain Psychiatric: normal mood/ affect Neurological: [denies weakness in extremities], [denies balance issues] Objective:: Physical Exam General: Alert and oriented x3, no acute distress, pleasant and cooperative, [on room air] Lungs: Resps E/U, Symmetrical chest expansion, Eyes: PERRL Musculoskeletal: Flexion and extension of cervical and lumbar spine somewhat guarded secondary to pain, deep tendon reflexes normal, strength in upper and lower extremities [5/5], normal gait noted Neurological: speech clear, bale tie machine operator equal, no gross sensory deficits Assessment:: Degenerative disc disease cervical spinal cervical radiculopathy symptoms and degenerative disc disease lumbar spine with post laminectomy syndrome lumbar spine with lumbar radiculopathy and SI joint pain on the right side Plan:: We will see the patient back in 1 month reassess her symptoms at that time in the meantime she can meet with patient accounting representative and be reprogram. Patient is also potentially going to need an SI joint injection in the future. We discussed this briefly. Dr. Milton has reviewed this note and agrees with this plan of care. This note was dictated using voice recognition software and may contain errors or omissions Pain Management Hx Components *Have you ever received a pneumonia vaccine?: No *Have you received a flu vaccine this season?: Yes - *Social History *Occupational Status:: other *Travel in the last 8 weeks: None
[2018-11-23 11:09] VITALS: BP 167/94; PULSE 83; RESP 18; O2SAT 98; BMI 24.0
== END ==
PROVIDERS: PCP Physician Assistant; Visit Provider Clinical Nurse Specialist Family Health
DX: M50.10 Cervical disc disorder with radiculopathy, unspecified cervical region (principal); M51.16 Intervertebral disc disorders with radiculopathy, lumbar region; M96.1 Postlaminectomy syndrome, not elsewhere classified; M46.1 Sacroiliitis, not elsewhere classified
CPT/HCPCS: 99213

== ENCOUNTER → 2018-12-27 09:33 | Outpatient (POV) | payer MEDICARE, SELFPAY ==
[2018-12-27 09:52] VITALS: BP 125/79; PULSE 90; RESP 18; O2SAT 98; BMI 24.0
--- NOTE | 2018-12-27 10:02 | HMH.PAINSOAP ---
[facility] Pain Management SOAP Note Subjective:: Is a very pleasant 48-year-old white female who presents today for follow-up. Patient is doing well with her neurostimulator. However she is having some right foot pain. We discussed seeing Dr. Jorge for this. She is interested in this. She rates her pain today a 3 out of 10. She does have some right buttock pain however it is covered by her stimulator. We did discuss potential reprogramming. ROS General: no recent weight change, no fever, no sleep disturbances Respiratory: no cough, no shortness of air, no recurring pulmonary infections Cardiovascular/Peripheral Vascular: No chest pain, No palpitations, no edema, no shortness of breath. Gastrointestinal: no incontinence, normal bowel movements reported Genitourinary: no incontinence Musculoskeletal: Neck pain, back pain, right foot pain Psychiatric: normal mood/ affect, Neurological: [denies weakness in extremities], [denies balance issues] Objective:: Physical Exam General: Alert and oriented x3, no acute distress, pleasant and cooperative, [on room air] Lungs: Resps E/U, Symmetrical chest expansion, Eyes: PERRL Musculoskeletal: Flexion and extension of lumbar spine somewhat guarded secondary to pain, deep tendon reflexes normal, strength in upper and lower extremities [5/5], slightly antalgic gait noted Neurological: speech clear, airplane coverer equal, no gross sensory deficits Assessment:: Degenerative disc disease cervical spine with cervical radiculopathy symptoms and degenerative disc disease lumbar spine with postlaminectomy syndrome lumbar spine with lumbar radiculopathy SI joint pain Right foot pain Plan:: We will see the patient back in 2 months reassess her symptoms at that time she is been instructed to call the office if she has any issues or to this we will set her up for podiatry in regards to her right foot pain. Dr. Milton has reviewed this note and agrees with this plan of care. This note was dictated using voice recognition software and may contain errors or omissions [facility] History I have reviewed the patient's past medical history: Yes Medical History: Reports:: Anxiety, Asthma, Chronic Obstructive Pulmonary Disease (COPD), Depression, Gastroesophageal Reflux Disease(GERD), Hyperlipidemia, Hypertension, Transient Ischemic Attacks (TIA) (x2) Denies:: Cancer, Diabetes Mellitus Type 1, Diabetes Mellitus Type 2, Internal Pacemaker, Lung Disease, MRSA, Seizures *Have you ever received a pneumonia vaccine?: No *Have you received a flu vaccine this season?: No Other Medical History: Reports: Other (chronic back pain). Denies: Blood Transfusion Reaction Laterality Cases: Left: Carpal Tunnel Release Other Surgeries: Yes: Colonoscopy, Tubal Ligation, Other (Lumbar fusion). No: Pacemaker Amputation: No Fractures: No - *Social History Smoking Status: Current every day smoker Tobacco Type: cigarettes, e-cigarettes # Packs/Day (cigarettes): 1 Alcohol Intake: never Alcohol Intake Frequency:: a few times a week Substance Use Type: marijuana *Occupational Status:: other Housing: house Household Members: none, other *Travel in the last 8 weeks: None - Psychiatric History Pschychiatric History:: Reports:: Anxiety, Depression Family Hx:: Cancer, Coronary Artery Disease
--- NOTE | 2018-12-27 10:05 | P.CONS_ITS ---
[facility] Pain Management SOAP Note Subjective:: Is a very pleasant 48-year-old white female who presents today for follow-up. Patient is doing well with her neurostimulator. However she is having some right foot pain. We discussed seeing Dr. Jorge for this. She is interested in this. She rates her pain today a 3 out of 10. She does have some right buttock pain however it is covered by her stimulator. We did discuss potential reprogramming. ROS General: no recent weight change, no fever, no sleep disturbances Respiratory: no cough, no shortness of air, no recurring pulmonary infections Cardiovascular/Peripheral Vascular: No chest pain, No palpitations, no edema, no shortness of breath. Gastrointestinal: no incontinence, normal bowel movements reported Genitourinary: no incontinence Musculoskeletal: Neck pain, back pain, right foot pain Psychiatric: normal mood/ affect, Neurological: [denies weakness in extremities], [denies balance issues] Objective:: Physical Exam General: Alert and oriented x3, no acute distress, pleasant and cooperative, [on room air] Lungs: Resps E/U, Symmetrical chest expansion, Eyes: PERRL Musculoskeletal: Flexion and extension of lumbar spine somewhat guarded secondary to pain, deep tendon reflexes normal, strength in upper and lower extremities [5/5], slightly antalgic gait noted Neurological: speech clear, monotype mechanic equal, no gross sensory deficits Assessment:: Degenerative disc disease cervical spine with cervical radiculopathy symptoms and degenerative disc disease lumbar spine with postlaminectomy syndrome lumbar spine with lumbar radiculopathy SI joint pain Right foot pain Plan:: We will see the patient back in 2 months reassess her symptoms at that time she is been instructed to call the office if she has any issues or to this we will set her up for podiatry in regards to her right foot pain. Dr. Milton has reviewed this note and agrees with this plan of care. This note was dictated using voice recognition software and may contain errors or omissions [facility] History I have reviewed the patient's past medical history: Yes Medical History: Reports:: Anxiety, Asthma, Chronic Obstructive Pulmonary Disease (COPD), Depression, Gastroesophageal Reflux Disease(GERD), Hyperlipidemia, Hypertension, Transient Ischemic Attacks (TIA) (x2) Denies:: Cancer, Diabetes Mellitus Type 1, Diabetes Mellitus Type 2, Internal Pacemaker, Lung Disease, MRSA, Seizures *Have you ever received a pneumonia vaccine?: No *Have you received a flu vaccine this season?: No Other Medical History: Reports: Other (chronic back pain). Denies: Blood Transfusion Reaction Laterality Cases: Left: Carpal Tunnel Release Other Surgeries: Yes: Colonoscopy, Tubal Ligation, Other (Lumbar fusion). No: Pacemaker Amputation: No Fractures: No - *Social History Smoking Status: Current every day smoker Tobacco Type: cigarettes, e-cigarettes # Packs/Day (cigarettes): 1 Alcohol Intake: never Alcohol Intake Frequency:: a few times a week Substance Use Type: marijuana *Occupational Status:: other Housing: house Household Members: none, other *Travel in the last 8 weeks: None - Psychiatric History Pschychiatric History:: Reports:: Anxiety, Depression Family Hx:: Cancer, Coronary Artery Disease
--- NOTE | 2018-12-27 10:21 | XR_ITS ---
PROCEDURE: XR FOOT WT BEARING RT 3V CLINICAL INDICATION: right foot pain per pain management COMPARISON: No exams were available for comparison FINDINGS: Osteoarthritic change 1st MTP joint with bony hypertrophic change at the 1st MTP joint. No fracture or dislocation. No lytic or blastic change. 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
--- NOTE | 2018-12-27 10:21 | XR_ITS ---
PROCEDURE: XR FOOT WT BEARING LT 3V CLINICAL INDICATION: comparison views Follow-up bunionectomy COMPARISON: None FINDINGS: No fracture or dislocation. No lytic or blastic change. There is normal mineralization. Mild osteoarthritic change of the 1st MTP joint. Prior bunionectomy of the distal aspect of the 1st metatarsal. Normal alignment. No fracture or dislocation. Other findings:None. IMPRESSION: Status post prior bunionectomy 1st MTP with mild osteoarthritis Dictated by: Edy Suazo MD 12/27/2018 10:46 Electronically signed by Edy Suaoz MD in [place] 12/27/2018 10:46
== END ==
LOC: SC.PAIN 09:34 → RAD 10:17
PROVIDERS: PCP Physician Assistant; Referring Provider Clinical Nurse Specialist Family Health; Visit Provider Podiatrist
DX: M79.671 Pain in right foot (principal)
CPT/HCPCS: 73630; 99212

== ENCOUNTER → 2019-02-02 11:33 | Outpatient (CLI) | payer MEDICARE, SELFPAY ==
[2019-02-02 12:07] LABS: Basophils # 0.1 K/mm3 (0-0.2); Basophils % 0.9 % (0.1-2.0); Eosinophils # 0.1 K/mm3 (0.0-0.4); Eosinophils % 2.1 % (0.1-12.0); Hematocrit 44.4 % (37.0-47.0); Hemoglobin 14.2 g/dL (12.2-16.2); Lymphocytes % 45.2 % (10-50); Mean Corpuscular Hemoglobin 30.3 pg (27.0-31.2); Mean Corpuscular Volume 94.5 fl (81-99); Monocytes # 0.2 K/mm3 (0.1-1.0); Monocytes % 3.4 % (1.7-9.3); Neutrophils # 3.2 K/mm3 (1.8-7.8); Neutrophils % 48.4 % (37.0-80.0); Platelet Count 243 K/mm3 (142-424); Red Cell Distribution Width 14.5 % (11.5-17.5); White Blood Count 6.6 K/mm3 (4.8-10.8)
[2019-02-02 13:56] LABS: Alanine Aminotransferase 24 U/L (12-78); Albumin Level 3.5 gm/dL (3.4-5.0); Albumin/Globulin Ratio 1.1 (1.1-1.8); Alkaline Phosphatase 72 U/L (46-116); Amylase 40 U/L (25-115); Aspartate Amino Transferase 10 U/L (15-37); Bilirubin,Total 0.3 mg/dL (0.2-1.0); Blood Urea Nitrogen 10 mg/dL (7-18); Calcium 8.8 mg/dL (8.5-10.1); Carbon Dioxide 32 mmol/L (21.0-32.0); Chloride 103 mmol/L (98-107); Creatinine,Serum 0.78 mg/dL (0.55-1.02); Estimated Glomerular Filt Rate 78 ml/min (>60); GFR (African American) 95 ML/MIN (>60); Globulin 3.2 gm/dl (1.3-3.2); Glucose 112 mg/dL (74-106); Lipase 104 u/L (73-393); Sodium 141 mmol/L (136-145); Total Protein,Serum 6.7 gm/dL (6.4-8.2)
== END ==
PROVIDERS: Visit Provider Surgery
DX: K85.90 Acute pancreatitis without necrosis or infection, unspecified (principal); M54.9 Dorsalgia, unspecified; R10.10 Upper abdominal pain, unspecified; R10.30 Lower abdominal pain, unspecified
CPT/HCPCS: 36415; 80053; 82150; 83690; 85025

== ENCOUNTER → 2019-02-09 08:38 | Outpatient (CLI) | payer MEDICARE, SELFPAY ==
--- NOTE | 2019-02-09 08:40 | CT_ITS ---
PROCEDURE: CT ABDOMEN PELVIS W CON CLINICAL INDICATION: epigastric, lower abdominal pain and back pain COMPARISON: No exams were available for comparison TECHNIQUE: IV Contrast: 75ML OPTIRAY 350 Oral Contrast 450ml Redicat Axial images obtained with sagittal and coronal reformats. All CT scans at the facility use one or more dose reduction, viz: automated exposure control, ma/kV adjustment per patient size (including targeted exams where dose is matched to indication, i.e. head), or iterative reconstruction technique. FINDINGS: LOWER THORAX: No acute finding. There are bilateral breast implants present. Metallic device is present in the inter atrial region of the heart. ABDOMEN & PELVIS: The liver, spleen, pancreas, adrenal glands, and kidneys show no acute finding. No intestinal obstruction or free air. No evidence of appendicitis or diverticulitis. No pelvic mass, abnormal fluid collection, or focal inflammatory change of the pelvis. No acute bony anomalies. There is a small left ovarian cyst at 13 mm. There is an epidural stimulator device present. There is degenerative disc disease at L4-5 with 9 mm anterolisthesis of L4 with facet arthritic changes at L4-5. Prior posterior fusion at L5-S1. Mild thickening of the sigmoid colon versus nondistention. There is a small umbilical hernia containing fat IMPRESSION: 1. Mild thickening of the sigmoid colon which may be due to nondistention or mild colitis. 2. Nonacute findings as described above. Dictated by: Edy Suazo MD 02/09/2019 20:23 Electronically signed by Edy Suazo MD in [place] 02/10/2019 06:43
== END ==
PROVIDERS: PCP Physician Assistant; Visit Provider Surgery
DX: K46.9 Unspecified abdominal hernia without obstruction or gangrene (principal)
CPT/HCPCS: 74177; Q9967

== ENCOUNTER → 2019-03-08 09:37 | Outpatient (POV) | payer MEDICARE, SELFPAY ==
[2019-03-08 10:12] VITALS: BP 138/82; PULSE 81; RESP 18; O2SAT 99; BMI 24.2
--- NOTE | 2019-03-08 10:31 | HMH.PAINSOAP ---
[facility] Pain Management SOAP Note Subjective:: Patient is a pleasant 48-year-old white female who presents today for follow-up. She is being treated for right foot pain, along with neck and low back pain. She also has radicular symptoms with right shoulder pain and bilateral leg pain. Patient rates her pain a 5 out of 10 today. She does have a spinal cord stimulator which has been reprogrammed in the past. Patient was scheduled at last visit to follow-up with Dr. Carl, however, patient says that she has not been able to follow-up with Dr. Jorge yet. She says she is still confused considering following up with the provider. Patient would like to, however, discussed reprogramming with the stimulator guest experience representative. She is continuing with anti-inflammatories and a home stretching program. Review of Systems General: No recent weight changes, no fever, no sleep disturbances Respiratory: No cough, no shortness of air, no recurring pulmonary infections Cardiovascular/peripheral vascular: No chest pain, no palpitations, no edema, no shortness of breath Gastrointestinal: No new onset incontinence, normal bowel movements reported Genitourinary: No new onset incontinence Musculoskeletal: Neck pain, right shoulder pain, low back pain, bilateral lower extremity pain right foot pain Psychiatric: Normal mood/affect Neurological: [Denies weakness in extremities], [denies balance issues] Objective:: Physical exam General: Alert and oriented x3, no acute distress, pleasant and cooperative, [on room air] Lungs: Respirations even and unlabored, symmetrical chest expansion Eyes: PERRL Musculoskeletal: Flexion and extension of cervical and lumbar spine somewhat guarded secondary to pain, deep tendon reflexes normal, strength in upper and lower extremities [5/5], [abnormal gait noted] Neurological: 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 She will continue with anti-inflammatories and a home stretching program. We will schedule the patient to follow-up with a stimulator guest experience representative to discuss reprogramming. Patient instructed contact clinic if she has any concerns before next appointment. Dr. Milton has reviewed this note and agrees with this plan of care. This note was dictated using voice recognition software and make contain errors or omissions. [facility] History I have reviewed the patient's past medical history: Yes Medical History: Reports:: Anxiety, Asthma, Chronic Obstructive Pulmonary Disease (COPD), Depression, Gastroesophageal Reflux Disease(GERD), Hyperlipidemia, Hypertension, Seizures, Transient Ischemic Attacks (TIA) Denies:: Cancer, Diabetes Mellitus Type 1, Diabetes Mellitus Type 2, Internal Pacemaker, Lung Disease, MRSA *Have you ever received a pneumonia vaccine?: Yes *Have you received a flu vaccine this season?: Yes Other Medical History: Reports: Other. Denies: Blood Transfusion Reaction Laterality Cases: Left: Carpal Tunnel Release, Bilateral: Tonsillectomy Other Surgeries: Yes: Colonoscopy, Tubal Ligation, Other. No: Pacemaker Amputation: No Fractures: Yes - *Social History Smoking Status: Current every day smoker Tobacco Type: cigarettes # Packs/Day (cigarettes): 5 Alcohol Intake: never Alcohol Intake Frequency:: a few times a week Substance Use Type: marijuana *Occupational Status:: other Housing: house Household Members: none, other *Travel in the last 8 weeks: None - Psychiatric History Pschychiatric History:: Reports:: Anxiety, Depression Family Hx:: Cancer, Coronary Artery Disease
== END ==
PROVIDERS: PCP Physician Assistant; Visit Provider Clinical Nurse Specialist Family Health
DX: M50.10 Cervical disc disorder with radiculopathy, unspecified cervical region (principal); M79.671 Pain in right foot
CPT/HCPCS: 99212

== ENCOUNTER 2023-05-05 19:43 | Outpatient (CLI) | payer MEDICARE, SELFPAY ==
[2023-05-05 18:16] LABS: Basophils % 0.4 % (0.1-2.0); Eosinophils # 0.1 K/mm3 (0.0-0.4); Eosinophils % 1.1 % (0.1-12.0); Hematocrit 46.5 % (37.0-47.0); Hemoglobin 15.8 g/dL (12.2-16.2); Lymphocytes # 2.3 K/mm3 (0.7-4.5); Lymphocytes % 28.1 % (10-50); Mean Corpuscular HGB Conc 33.9 g/dL (31.8-35.4); Mean Corpuscular Hemoglobin 31.6 pg (27.0-31.2); Mean Corpuscular Volume 93.2 fl (81-99); Mean Platelet Volume 9.9 fl (7.4-10.4); Monocytes # 0.3 K/mm3 (0.1-1.0); Monocytes % 3.1 % (1.7-9.3); Neutrophils # 5.4 K/mm3 (1.8-7.8); Neutrophils % 67.2 % (37.0-80.0); Platelet Count 262 K/mm3 (142-424); Red Blood Count 4.99 M/mm3 (4.20-5.40); Red Cell Distribution Width 15.1 % (11.5-17.5); White Blood Count 8.1 K/mm3 (4.8-10.8)
[2023-05-05 18:32] LABS: Hemoglobin A1C 5.8 % (4.0-6.0)
[2023-05-05 19:08] LABS: Alanine Aminotransferase 22 U/L (12-78); Albumin Level 4.2 g/dl (3.5-5.0); Albumin/Globulin Ratio 1.6 (1.1-1.8); Alkaline Phosphatase 64 U/L (38-126); Anion Gap 9.3 mEq/L (5-15); Aspartate Amino Transferase 26 U/L (14-36); Bilirubin,Total 0.6 mg/dl (0.2-1.3); Blood Urea Nitrogen 13 mg/dl (7-17); Calcium 9.4 mg/dl (8.4-10.2); Carbon Dioxide 25 mmol/L (22.0-30.0); Chloride 108 mmol/L (98-107); Chol/HDL Ratio 4.1 (1-3.5); Cholesterol 226 mg/dl (140-200); Estimated Glomerular Filt Rate 87 ml/min (>60); GFR (African American) 106 ML/MIN (>60); Globulin 2.6 g/dL (1.3-3.2); Glucose 108 mg/dl (74-100); HDL Cholesterol 55 mg/dl (40-60); Potassium 4.3 mmoL/L (3.5-5.1); Sodium 138 mmol/L (136-145); Total Protein,Serum 6.8 g/dl (6.3-8.2); Triglycerides 115 mg/dl (30-150); VLDL Cholesterol 23 mg/dL (0-40)
[2023-05-05 19:19] LABS: 25-OH Vitamin D, Total 25.8 ng/mL (30-100)
[2023-05-05 19:40] LABS: Thyroid Stimulating Hormone 1.15 uIU/mL (0.465-4.68)
== END 2023-05-05 23:59 ==
LOC: LAB.DROPOF 19:43
PROVIDERS: PCP Student in an Organized Health Care Education/Training Program; Visit Provider Student in an Organized Health Care Education/Training Program
DX: E78.5 Hyperlipidemia, unspecified (principal); M50.90 Cervical disc disorder, unspecified, unspecified cervical region; E55.9 Vitamin D deficiency, unspecified; R73.09 Other abnormal glucose; Z79.899 Other long term (current) drug therapy
CPT/HCPCS: 80053; 80061; 82306; 83036; 84443; 85025

== ENCOUNTER 2023-05-28 09:22 | Outpatient (CLI) | payer MEDICARE, SELFPAY ==
--- NOTE | 2023-05-28 09:27 | XR_ITS ---
FINAL REPORT CLINICAL HISTORY: left foot pain COMPARISON: None FINDINGS: LEFT FOOT: Three views of the left foot were obtained. There are postoperative changes at the head of the first metatarsal. There is no acute fracture or dislocation. There is mild degenerative change. There is no soft tissue abnormality. IMPRESSION: Postoperative and degenerative changes without acute bony abnormality. Reviewed, Interpreted and Dictated by Alejo Krishna III, MD Transcribed by Janene Nuñez Authenticated and [facility]
== END 2023-05-28 23:59 ==
LOC: RAD 09:24
PROVIDERS: PCP Student in an Organized Health Care Education/Training Program; Visit Provider Physician Assistant
DX: M79.672 Pain in left foot (principal)
CPT/HCPCS: 73630

== ENCOUNTER 2023-05-29 07:43 | Outpatient (CLI) | payer MEDICARE, SELFPAY | END 2023-05-29 23:59 | LOC: RT 07:43 | PROVIDERS: PCP Student in an Organized Health Care Education/Training Program; Visit Provider Student in an Organized Health Care Education/Training Program | DX: R06.09 Other forms of dyspnea (principal) | CPT/HCPCS: 94060; 94618; 94726; 94729 ==

== ENCOUNTER 2023-06-25 07:44 | Outpatient (CLI) | payer MEDICARE, SELFPAY ==
--- NOTE | 2023-06-25 07:44 | NM_ITS ---
APPROVED REPORT Exam: Nuclear Stress Test Indication: chest pain..soa Patient Location: Outpatient Stress Tech: Tanya Whyte NM Tech:CASANDRA Webster RT(R)(N) Ht: 5 ft 4 in Wt: 140 lbs Bra Size: 36c HR: 68 bpm BP: 143/87 mmHg BSA: 1.68 m2 Rhythm: NSR TID: 1.20 BMI: 24.0 History: chest pain...soa Procedure: Patient received 0.4 mg of intravenous Lexiscan, resting heart rate 68 bpm, resting blood pressure 143/87 mmHg, with Lexiscan maximum heart rate achieved was 99 bpm which is 85 % of the maximum predicted heart rate and blood pressure was 155/83 mmHg. With Lexiscan, patient denied any complaint of chest pain. Cardiac Stress and Resting SPECT Images: Cardiac Stress and Resting SPECT images were obtained using technetium 99m Myoview 32.8 mCi stress and 10.97 mCi at rest. Resting and stress imaging in supine and prone positions demonstrate no evidence of focal fixed or reversible perfusion defects. There is borderline increase in transient ischemic dilatation ratio (TID 1.20), suggestive of balanced ischemia or multivessel disease. Gated imaging demonstrates mild reduction in global and regional LV systolic function. LVEF is calculated at 47%. Conclusion: No evidence of focal fixed or reversible perfusion defects. There is borderline increase in transient ischemic dilatation ratio (TID 1.20), suggestive of balanced ischemia or multivessel disease. Gated imaging demonstrates mild reduction in global and regional LV systolic function. LVEF is calculated at 47%. In the setting of borderline TID and young age, further evaluation with non-invasive methods, i.e. CCTA, may be suggested if clinically feasible, prior to proceeding with invasive coronary angiography. Electronically signed by : Jeaneth Harmon MD 06/28/2023 17:11:02
--- NOTE | 2023-06-25 08:18 | CA_ITS ---
APPROVED REPORT EXAM: Comprehensive 2D, Doppler, and color-flow Echocardiogram Fusing Machine Feeder: Shari Ramirez, RCS, RVS Ht: 5 ft 4 in Wt: 139lbs BSA: 1.68 BP: 134/85 mmHg Indications: CP,Abn EKG, Hx-cocaine use,PFO closure 2018, TIA, ETOH use. Echo Enhancing Agent Indication: Rule out Shunt Agent(s) / Amount(s) Used: Agitated Saline 10 cc Comments: Bubbles shunted with sniff 2D Dimensions LVDd 5.20 cm F: 3.9 - 5.3 LVEF (Visual) 49.10 % LVDs 3.90 cm F: 2.2 - 3.5 LA Volume 33.80 mL Left Atrium 2.95 cm F: 2.7 - 3.8 LA Volume Index [id number] mL/m2 (M/F) 16-34 EF AP4 50.60 % GL Strain -11.5 % M-Mode Dimensions RVDd 1.69 cm (0.9-2.6) LA Diam 3.36 cm (1.9-4.0) LVDd 5.93 cm (3.5-5.7) LVDs 4.47 cm (3.5-5.7) IVSd 0.78 cm (0.6-1.1) PWd 0.69 cm (0.6-1.1) EF (Teich) 48.10% EPSs 0.66 cm FS 24.60% EDV (Teich) 175.20 mL TAPSE 2.19 (<1.7) ESV (Teich) 91.00 mL LV Diastology E Decel Time 187 (160-240 msec) E/A Ratio 0.93 MED A' 10.10 cm/s LAT A' 9.10 cm/s Aortic Valve ADAMA Index 1.05 cm2/m2 AoV Peak Taco. 132.0 (50-130 cm/s) AO Peak GR. 7.00 mmHg AO Mean GR. 3.50 (<5 mmHg) AO VTI 28.5 (18-25 cm) ADAMA (VTI) 1.80 (2.5-4.5 cm2) Mitral Valve MV A Velocity 58.0 (40-130 cm/s) E/A Ratio 0.93 Pulmonary Valve PV Peak Velocity 73.0 (50-150 cm/s) Tricuspid Valve TR P. Velocity 262.00 cm/s RAP Estimate 10.00 mmHg RVSP 37.40 mmHg Left Ventricle The left ventricle is normal size. The left ventricular systolic function is low-normal. There is normal left ventricular wall thickness. There is normal LV segmental wall motion. The left ventricular diastolic function is normal. LVEF is 50%. Right Ventricle The right ventricle is normal size. The right ventricular systolic function is normal. Atria The left atrium size is normal. The right atrium size is normal. s/p PFO closure (2018). There is no Doppler evidence of interatrial shunt. Administration of agitated saline demonstrates no evidence of interatrial shunt. Aortic Valve The aortic valve opens well. There is no aortic valvular stenosis. No aortic regurgitation is present. Mitral Valve The mitral valve is normal in structure. No evidence of mitral valve stenosis. There is no mitral valve regurgitation noted. Tricuspid Valve The tricuspid valve leaflets are thin and pliable. Mild tricuspid regurgitation. RVSP is 25-30 mmHg. Pulmonic Valve The pulmonary valve is normal in structure. Trace pulmonic regurgitation. Great Vessels The aortic root is normal in size. The ascending aorta is not well visualized. IVC is normal in size and collapses >50% with inspiration. Pericardium There is no pericardial effusion. Other Information Study Quality: Fair Conclusion Normal biventricular systolic function. Mild TR. s/p PFO closure (2018). There is no Doppler evidence of interatrial shunt. Administration of agitated saline demonstrates no evidence of interatrial shunt. Electronically signed by : Jeaneth Harmon MD 06/29/2023 16:23:32
[2023-06-25] MEDS: REGADENOSON 0.4MG/5ML SYRINGE 0.400000000000000022 MG IV (09:08)
[2023-06-25] MEDS: SODIUM CHLORIDE 0.9% 10ML SYR (RAD ONLY) 10 ML IV ×2 (09:08)
[2023-06-25] MEDS: ISOTOPE MYOVIEW (PER STUDY) 1 DOSE IV (09:08)
--- NOTE | 2023-06-25 09:18 | CA_ITS ---
APPROVED REPORT Exam: Pharmacologic Technologist: Tanya Prince, Ht: 5 ft 4 in Wt: 139 lbs BSA: 1.68 m2 HR: 64 bpm BP: 143/87 mmHg Rhythm: NSR Medical History Medications: Aspirin,,,,, Vitamin D3,,,,, Atorvastatin,,,,, SyMBICORT,,,,, Albuterol,,,,, Famotidine,,,,, Stress Test Details Test: LEXISCAN Reason for pharmacologic stress test: physical limitation. HR Resting HR: 68 bpm Max Heart Rate (APMHR): 165 bpm Max HR Achieved: 99 bpm Target HR (85% APMHR): 140 bpm % of APMHR: 60 Recovery HR: 84 bpm BP Resting BP: 143.0/87.0 mmHg Max BP: 155.0/83.0 mmHg Recovery BP: 155.0/83.0 mmHg ECG Resting ECG: NSR, non-specific ST abnormalities Stress ECG: No significant ST changes Arrhythmia: Occasional PVCs Clinical Exercise duration: 04:00 min Highest Stage Achieved: Stress ECG Conclusion Symptoms: Mild SOA & head discomfort. No CP. Arrhythmias/Ectopy: occasional PVC. ST-T Changes: No significant ST changes Conclusion: Non-diagnostic Lexiscan ECG stress due to baseline abnormalities. Myoveiw images reported separately. Test Summary REST . . . . . . . Resting REST 02:14 . . 68 . 143/ 87 . . Stage 1 01:00 . . 93 . . . . Stage 2 01:00 . . 87 . 127/ 82 . . Stage 3 01:00 . . 77 . 142/ 86 . . Stage 4 01:00 . . 79 . 137/ 82 . Stop exercise at 04:00 RECOVERY 01:00 . . 68 . . . . RECOVERY 02:00 . . 73 . 155/ 83 . . RECOVERY 03:00 . . 72 . 155/ 83 . . RECOVERY 03:23 . . 75 . 155/ 83 . . Electronically signed by : Jeaneth Harmon MD 06/28/2023 17:07:00
== END 2023-06-25 23:59 ==
LOC: RAD 07:44
PROVIDERS: PCP Student in an Organized Health Care Education/Training Program; Visit Provider Physician Assistant
DX: R94.31 Abnormal electrocardiogram [ECG] [EKG] (principal); M79.672 Pain in left foot; R07.9 Chest pain, unspecified; Z82.49 Family history of ischemic heart disease and other diseases of the circulatory system; F14.91 Cocaine use, unspecified, in remission; Z71.6 Tobacco abuse counseling; Z72.0 Tobacco use; Z86.73 Personal history of transient ischemic attack (TIA), and cerebral infarction without residual deficits; Z87.74 Personal history of (corrected) congenital malformations of heart and circulatory system; E78.5 Hyperlipidemia, unspecified
CPT/HCPCS: 78452; 93017; 93018; 93306; A9502; J2785

== ENCOUNTER 2023-08-18 15:01 | Outpatient (CLI) | payer MEDICARE, SELFPAY ==
--- NOTE | 2023-08-18 15:02 | CT_ITS ---
FINAL REPORT CLINICAL HISTORY: lung cancer screening smoker 30 years, 1/2 ppd FINDINGS: Axial images were obtained from the lung apex to the mid abdomen by computed tomography. Low-dose protocol was utilized. CTDl vol(mGy): 2.90 DLP (mGy-cm): 106.81 FINDINGS: There is no axillary adenopathy. There is no hilar or mediastinal adenopathy. The heart size is normal. Bilateral subglandular breast implants are noted. There is no pericardial or pleural effusion. Limited images of the upper abdomen are unremarkable. Lung window images demonstrate no suspicious infiltrate or nodule. There are mild changes of centrilobular emphysema in the upper lobes. IMPRESSION: Lung RADS category 1. Recommend 12 month follow-up low-dose chest CT. Reviewed, Interpreted and Dictated by Francisco Nava MD Transcribed by Ariana Knight Authenticated and [facility]
== END 2023-08-18 23:59 | disposition home or self-care (01) ==
LOC: RAD 15:02
PROVIDERS: PCP Student in an Organized Health Care Education/Training Program; Visit Provider Student in an Organized Health Care Education/Training Program
DX: F17.210 Nicotine dependence, cigarettes, uncomplicated (principal)
CPT/HCPCS: 71271

== ENCOUNTER 2023-08-31 08:13 | Day surgery (SDC) | payer MEDICARE, SELFPAY ==
[2023-08-31] VITALS (12 sets, daily range): BP systolic 97–172; BP diastolic 59–109; PULSE 59–76; RESP 17–18; TEMP 36.6; O2SAT 88–100; BMI 23.5
--- NOTE | 2023-08-31 07:10 | IR_ITS ---
APPROVED REPORT Patient Location: Outpatient PROCEDURES Left heart catheterization Left ventriculogram Selective coronary angiogram INDICATION Abnormal Myoview, Informed consent was obtained prior to the procedure. COMPLICATIONS NONE Estimated Blood Loss: LESS THAN 10 ML TECHNIQUE One percent lidocaine used to anesthetize the right anterior aspect of the wrist. The right radial artery was accessed via the Seldinger technique. A 6 Spanish sheath was placed in the right radial artery. 2.5 mg of Verapamil, 800 mcg of nitroglycerin, 1mg Lidocaine and 5000 U Heparin were given through the arterial sheath. The papa catheter was also used to perform left heart catheterization, left ventriculogram and selective coronary angiogram. At the end of the procedure the sheath was removed good hemostasis was achieved using Traclet band, patient was transferred to the postop holding area in stable condition. 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 Medical management 2. Patient is alone acceptable risk to proceed with outpatient surgical procedure Electronically signed by : Reid Huitron MD 08/31/2023 11:35:07
[2023-08-31 08:42] LABS: Basophils # 0.1 K/mm3 (0-0.2); Basophils % 1.6 % (0.1-2.0); Eosinophils # 0.2 K/mm3 (0.0-0.4); Eosinophils % 2.4 % (0.1-12.0); Hematocrit 49.4 % (37.0-47.0); Lymphocytes # 2.1 K/mm3 (0.7-4.5); Lymphocytes % 28.6 % (10-50); Mean Corpuscular HGB Conc 32.4 g/dL (31.8-35.4); Mean Corpuscular Hemoglobin 30.7 pg (27.0-31.2); Mean Corpuscular Volume 94.9 fl (81-99); Mean Platelet Volume 8.3 fl (7.4-10.4); Monocytes # 0.3 K/mm3 (0.1-1.0); Monocytes % 3.6 % (1.7-9.3); Neutrophils # 4.6 K/mm3 (1.8-7.8); Neutrophils % 63.8 % (37.0-80.0); Platelet Count 247 K/mm3 (142-424); Red Cell Distribution Width 14.7 % (11.5-17.5); White Blood Count 7.2 K/mm3 (4.8-10.8)
[2023-08-31 08:46] LABS: Chloride 107 mmol/L (98-107); Sodium 140 mmol/L (136-145)
[2023-08-31 08:49] LABS: Blood Urea Nitrogen 18 mg/dl (7-17); Creatinine Clearance Estimated 57 mL/min (50-200); Estimated Glomerular Filt Rate 52 ml/min (>60); GFR (African American) 62 ML/MIN (>60)
[2023-08-31 08:50] LABS: Calcium 9.4 mg/dl (8.4-10.2); Carbon Dioxide 28 mmol/L (22.0-30.0); Glucose 108 mg/dl (74-100)
[2023-08-31] MEDS: diphenhydrAMINE 50MG/ML VIAL 50 MG IV (09:44)
[2023-08-31] MEDS: VERAPAMIL 2.5MG/ML 2ML VIAL 2.5 MG IV (09:44)
[2023-08-31] MEDS: NITROGLYCERIN 800MCG/8ML SYR (CATH LAB) 800 MCG IA (09:45)
[2023-08-31] MEDS: LIDOCAINE 1% 10ML MDV 20 ML IJ (09:45)
[2023-08-31] MEDS: HEPARIN 1,000 UNITS/ML 10ML VIAL (CATH LAB) 10000 UNIT IV (09:45)
[2023-08-31] MEDS: HEPARIN 1,000 UNITS/500ML NS (CATH LAB) 3000 UNIT IV (09:45)
[2023-08-31] MEDS: 0.9 % SODIUM CHLORIDE 500 ML 25 ML IV (09:45)
[2023-08-31] MEDS: FENTANYL 100MCG/2ML VIAL 50 MCG IV (09:46)
[2023-08-31] MEDS: MIDAZOLAM HCL 1MG/1ML 5ML VIAL 1 MG IV (09:46)
[2023-08-31] MEDS: IOPAMIDOL-370 (76%);100ML BOTTLE 50 ML IV (10:05)
== END 2023-08-31 13:25 | disposition home or self-care (01) ==
PROVIDERS: PCP Student in an Organized Health Care Education/Training Program; Visit Provider Internal Medicine
DX: I20.89 Other forms of angina pectoris (principal); F14.91 Cocaine use, unspecified, in remission; R94.31 Abnormal electrocardiogram [ECG] [EKG]; Z82.49 Family history of ischemic heart disease and other diseases of the circulatory system; R94.39 Abnormal result of other cardiovascular function study; Z71.6 Tobacco abuse counseling; Z72.0 Tobacco use; Z86.73 Personal history of transient ischemic attack (TIA), and cerebral infarction without residual deficits; E78.5 Hyperlipidemia, unspecified; Z87.74 Personal history of (corrected) congenital malformations of heart and circulatory system
CPT/HCPCS: 80048; 85025; 93458; 99152; C1725; C1769; J1644; J2250; J3010; Q9967

== ENCOUNTER 2023-09-01 06:25 | Day surgery (SDC) | payer MEDICARE, SELFPAY ==
[2023-08-31 15:02] VITALS: BMI 23.1
[2023-09-01] MEDS: LACTATED RINGERS 1000ML 1,000 ML 25 ML IV (06:40)
[2023-09-01 06:41] VITALS: BP 129/70; PULSE 68; RESP 18; TEMP 36.6; O2SAT 95
--- NOTE | 2023-09-01 07:09 | EXP.ANES.CKL ---
[facility] Disclaimer: The information contained in this section may have been updated after the patient was seen, as this information can be updated by other users. Medical History History of left heart catheterization Left foot pain History of cocaine use Family history of ischemic heart disease before age 50 Abnormal electrocardiogram [ECG] [EKG] Carpal tunnel syndrome Spinal cord stimulator status Myofascial pain syndrome Hyperlipemia Neck Pain Right shoulder pain Cervical radiculopathy Cervical disc disease Cervical osteophyte Spondylosis of cervical spine Surgical History H/O tubal ligation Family History Father Heart attack, Onset Age: 42 Mother Cancer Brother Heart attack Other No significant family history Social History Smoking Status: Current every day smoker tobacco type: cigarettes packs per day: 5 second hand exposure: Yes alcohol intake: never substance use type: marijuana current occupational status: other Travel in the last 8 weeks: None household members: none and other housing: house current occupational exposures/hazards: No caffeine: Yes [facility] Anesthesia Checklist Patient Identification Patient Identification: Arm Band and Verbal (Name & ) Structural Data Admitted From: Home Planned Operative Procedure/s: Colonoscopy Consent for Planned Operative Procedure(s) Verified: Yes Verified Documents: Surgical Consent and History and Physical NPO Status Verified Time NPO: 00:00 Additional verifications Anesthesia Reactions: No Hx Blood Transfusions: No Blood Transfusion Reaction: No Airway Assessment Mallampati Score:: Class II C-Spine Mobility Assessed: Yes TMJ Mobility Assessed: Yes Dentition: Good Dentition Neurological Assessment Level of Consciousness: Awake Hx Seizures: No Numbness or tingling in extremities: No Anesthesia Plan Anesthesia Risk discussed: Yes Anesthesia Plan: Verified ASA Class: III Anesthesia Type: MAC
--- NOTE | 2023-09-01 07:18 | P.PCN_ITS ---
Procedure: Date: 09/01/23 Patient Date of :: 1970 Procedure Performed:: Colonoscopy Indications:: History of polyps Note: Colonoscopy July 2018 was complicated by fairly severe spasticity/poor relaxati on. A nonretrievable transverse colon polyp was excised. A tubular adenoma was excised at 40 cm. Short-term follow-up colonoscopy in February 2019 was completed. Hemorrhoidal cushions confirmed. A benign polyp at 30 cm was excised. Performing Provider:: Lucien Arciniega MD Referring Provider:: . Sedation:: Monitored anesthesia care Procedure:: After informed consent was obtained the patient was taken to the endoscopy suite. Sedation ensued after the patient was transferred to the left lateral decubitus position. Pulse, blood pressure, and oxygen saturation were monitored throughout the procedure. Digital rectal exam revealed no significant abnormality. The colonoscope was placed in position. The entire colon was evaluated. The colonoscope was carefully removed and the patient was t ransferred to recovery in stable condition. Please see findings and specimens below for detail. Findings:: Bowel preparation fair to moderate Moderate spasticity/lack of relaxation Unchanged hemorrhoidal cushions Specimens:: None Recommendations:: Repeat colonoscopy in 3-5 years secondary to history of polyps and spasticity/lack of relaxation. Complications:: No immediate Estimated blood obtained (mL): 0 Colonoscopy Component Colonoscopy Component Was a colonoscopy performed during today's procedure?: Yes Recommended follow up colonoscopy of at least 10 years?: No If no, follow up colonoscopy recommended in ___ years?: (See above) Reason for not recommending >/= 10 yr follow-up interval?: (See above)
[2023-09-01 07:24] VITALS: O2SAT 95
[2023-09-01 07:53] VITALS: BP 105/61; PULSE 77; RESP 16; TEMP 36.4; O2SAT 94
[2023-09-01 08:03] VITALS: BP 99/60; PULSE 73; RESP 17; O2SAT 95
[2023-09-01 08:13] VITALS: BP 123/81; PULSE 76; RESP 17; O2SAT 95
[2023-09-01 08:23] VITALS: BP 99/63; PULSE 79; RESP 17; O2SAT 95
== END 2023-09-01 08:25 | disposition home or self-care (01) ==
PROVIDERS: PCP Student in an Organized Health Care Education/Training Program; Visit Provider Surgery
PROC: 0DJD8ZZ Inspection of Lower Intestinal Tract, Via Natural or Artificial Opening Endoscopic (ICD-10-PCS; CPT G0105; principal; 2023-09-01 07:30)
DX: Z12.11 Encounter for screening for malignant neoplasm of colon (principal); Z86.010 Personal history of colon polyps; K64.8 Other hemorrhoids
CPT/HCPCS: G0105; J7120

== ENCOUNTER 2023-11-12 11:33 | Outpatient (CLI) | payer MEDICARE, SELFPAY ==
[2023-11-12 18:36] LABS: Alanine Aminotransferase 22 U/L (12-78); Albumin Level 4.1 g/dl (3.5-5.0); Albumin/Globulin Ratio 1.4 (1.1-1.8); Alkaline Phosphatase 54 U/L (38-126); Anion Gap 10.7 mEq/L (5-15); Aspartate Amino Transferase 29 U/L (14-36); Bilirubin,Total 0.4 mg/dl (0.2-1.3); Blood Urea Nitrogen 16 mg/dl (7-17); Calcium 9.6 mg/dl (8.4-10.2); Carbon Dioxide 27 mmol/L (22.0-30.0); Chloride 107 mmol/L (98-107); Chol/HDL Ratio 3.5 (1-3.5); Cholesterol 228 mg/dl (140-200); Estimated Glomerular Filt Rate 74 ml/min (>60); GFR (African American) 90 ML/MIN (>60); Globulin 2.9 g/dL (1.3-3.2); Glucose 87 mg/dl (74-100); HDL Cholesterol 66 mg/dl (40-60); Potassium 4.7 mmoL/L (3.5-5.1); Sodium 140 mmol/L (136-145); Triglycerides 76 mg/dl (30-150); VLDL Cholesterol 15 mg/dL (0-40)
[2023-11-12 18:47] LABS: Direct LDL Cholesterol 137.8 mg/dL (100-129)
[2023-11-12 19:37] LABS: 25-OH Vitamin D, Total 39.3 ng/mL (30-100)
== END 2023-11-12 23:59 | disposition home or self-care (01) ==
LOC: LAB.DROPOF 11-13 11:34
PROVIDERS: PCP Student in an Organized Health Care Education/Training Program; Visit Provider Student in an Organized Health Care Education/Training Program
DX: E78.5 Hyperlipidemia, unspecified (principal); E55.9 Vitamin D deficiency, unspecified
CPT/HCPCS: 80053; 80061; 82306

== ENCOUNTER 2023-11-27 07:58 | Outpatient (CLI) | payer MEDICARE, SELFPAY ==
--- NOTE | 2023-11-27 07:58 | MM_ITS ---
PROCEDURE INFORMATION: Exam: MG Bilateral Screening 3D Mammography Exam date and time: 11/27/2023 7:49 AM Age: 53 years old Clinical indication: Screening. No family history of breast cancer. TECHNIQUE: Imaging protocol: Bilateral Screening tomosynthesis and 2D mammography including computer-aided detection (CAD) when performed. COMPARISON: 1. MG DIG MAMM-SCREEN IMPLANT 07/29/2018 4:46 PM 2. MG DMSI DIG MAMM-SCREEN IMPLANT W/CAD 08/14/2016 2:12 PM 3. MG DMDXUL DIG MAMM-DX UNI-LT 03/14/2015 1:11 PM 4. MG DMDXUAVL DIG MAMM-DX UNI ADD VIEWS-LT 07/13/2014 1:59 PM FINDINGS: MAMMOGRAPHY: Breast composition: The breasts are heterogeneously dense, which may obscure small masses. Mass: None. Architectural distortion: None. Calcifications: No suspicious calcifications. Asymmetric density: None. Skin thickening: None. Axillary adenopathy: None. Implants: Subpectoral saline implants. IMPRESSION: No mammographic evidence of malignancy. Annual screening is recommended unless otherwise clinically indicated. ASSESSMENT: BI-RADS Category 1: Negative.
--- NOTE | 2023-11-27 07:58 | XR_ITS ---
FINAL REPORT CLINICAL HISTORY: chronic low back pain COMPARISON: None FINDINGS: AP and lateral views of the lumbar spine were obtained. There is no prior exam for comparison. There is no acute fracture or malalignment. Vertebral body height is preserved. The patient has undergone prior posterior fusion at the L5-S1 level. There is 8 mm of anterolisthesis of L4 on L5, as well as marked L4-5 degenerative disc changes. Vascular calcifications are present as well as mild levoscoliosis. A spinal stimulator is noted as well. IMPRESSION: Prior posterior fusion at the L5-S1 level. Marked degenerative disc disease at the L4-5 level, with 8 mm of anterolisthesis L4 on L5. Reviewed, Interpreted and Dictated by Alejo Krishna III, MD Transcribed by Kailey Price Authenticated and [facility]
== END 2023-11-27 23:59 | disposition home or self-care (01) ==
LOC: RAD 07:58
PROVIDERS: PCP Student in an Organized Health Care Education/Training Program; Visit Provider Student in an Organized Health Care Education/Training Program
DX: M54.50 Low back pain, unspecified (principal); G89.29 Other chronic pain; Z12.31 Encounter for screening mammogram for malignant neoplasm of breast
CPT/HCPCS: 72100; 77063; 77067

== ENCOUNTER 2023-12-09 08:52 | Outpatient (POV) | payer MEDICARE, SELFPAY ==
--- NOTE | 2023-12-09 09:36 | A.OFFVIS_ITS ---
HPI Data of Consult Patient: known to practice within the last 3 years Consult date: 12/09/23 Requesting Physician: Vicki Hoffman APRN Primary Care Provider: SUKHDEV Robins Consult Narrative Reason for consult: Low back pain History of present illness: Ms. Lozano is a 53 year old female who presents today as a new patient. She is a self-referral. Patient was previously a patient of ours back around 2019. 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 Patient states that it is the [employer] system that went out of business. Patient does state that due to the fact that it is been nonfunctioning that she has been trying to get it removed however over the last 2 years she has had a lot of difficulty finding someone who is willing to do it. Patient does state that she has chronic pain throughout her low back and describes it as a constant aching sensation that is worse with increased activity such as walking standing or bending. Patient states that overall the radicular symptoms she had initially been experiencing are not as bad. Patient has tried oral medication, heat and ice and topicals with no additional relief. Patient in the past has had injection therapy however states that they were very very temporary may be providing a day of relief. Patient is interested if we are able to have the device removed. Her Jaquan has been reviewed and is appropriate. CC: Vicki Hoffman APRN [facility] Disclaimer: The information contained in this section may have been updated after the patient was seen, as this information can be updated by other users. Medical History History of left heart catheterization Left foot pain History of cocaine use Family history of ischemic heart disease before age 50 Abnormal electrocardiogram [ECG] [EKG] Carpal tunnel syndrome Spinal cord stimulator status Myofascial pain syndrome Hyperlipemia Neck Pain Right shoulder pain Cervical radiculopathy Cervical disc disease Cervical osteophyte Spondylosis of cervical spine Surgical History H/O tubal ligation Family History Father Heart attack, Onset Age: 42 Mother Cancer Ovarian Brother Heart attack Other No significant family history Social History Smoking Status: Current every day smoker tobacco type: cigarettes packs per day: 5 second hand exposure: Yes alcohol intake: never substance use type: marijuana current occupational status: other Travel in the last 8 weeks: None household members: none and other housing: house current occupational exposures/hazards: No caffeine: Yes Review of Systems Review of Systems Review of systems:: pertinent systems reviewed and negative unless documented below Review of systems (narrative): Review of Systems: General: No recent weight changes, no fever, no sleep disturbances Respiratory: No cough, no shortness of air, no recurring pulmonary infections Cardiovascular/peripheral vascular: No chest pain, no palpitations, no edema, no shortness of breath Gastrointestinal: No new onset incontinence, normal bowel movements reported Genitourinary: No new onset incontinence Musculoskeletal: Low back pain Psychiatric: [Normal mood/affect] Neurological: [Denies weakness in extremities], [denies balance issues] Meds Home Medications and Allergies Home Medications ?Medication ?Instructions ?Recorded ?Confirmed ?Type budesonide-formoterol HFA 160 1 inh inhalation BID #10.2 grams 05/13/23 11/12/23 Rx mcg-4.5 mcg/actuation aerosol inhaler (Symbicort) famotidine 20 mg tablet 20 mg PO DAILY #30 tabs 08/14/23 11/12/23 Rx aspirin 81 mg tablet,delayed 81 mg PO DAILY #120 tabs 11/12/23 11/12/23 Rx release (Adult Aspirin Regimen) atorvastatin 80 mg tablet 80 mg PO DAILY #90 tabs 11/13/23 Rx cholecalciferol (vitamin D3) 50 50 mcg PO DAILY #90 caps 11/13/23 Rx mcg (2,000 unit) capsule bupropion HCl (smoking deter) 150 150 mg PO DAILY #90 tabs 11/16/23 Rx mg tablet,12 hr sustained-release(smoking deterrent) New Prescriptions to Start Prescriptions: Allergies Allergy/AdvReac Type Severity Reaction Status Date / Time No Known Allergies Allergy Verified 11/12/23 09:03 Objective Narrative: Physical Exam: General: Alert and oriented x3, no acute distress, pleasant and cooperative Lungs: Respirations even and unlabored, symmetrical chest expansion Eyes: PERRL Musculoskeletal: Flexion and extension of lumbar [spine] somewhat guarded secondary to pain, [antalgic gait noted] Neurological: Speech clear, no gross sensory deficit Assessment and Plan *Assessment and plan (1) DDD (degenerative disc disease): Status: Acute Qualifiers: Spinal region: lumbar Qualified Code(s): M51.36 - Other intervertebral disc degeneration, lumbar region Category: Medical (2) Low back pain: Status: Acute Category: Medical Code(s): M54.50 - Low back pain, unspecified Plan I did discuss at length with the patient regarding having her device and leads explanted. Patient has had these in place since November 03, 2018. Patient has a system that is no longer in business and the device is nonfunctioning. I did review over the risk and benefits of explants and she would like to proceed forward with this plan of care. Patient is not on any blood thinners. Patient is planning on going to [place] to help her sister recover from lung surgery coming up. I did discuss with the patient that we will plan on doing her surgery in January. Patient agrees with this plan of care. I will order the patient a compounded cream. Patient will return to clinic 1 week postop of her explant of her nonfunctioning spinal cord stimulator and peripheral leads. Patient will be submitted for explant of nonfunctioning spinal cord stimulator and leads. Patient has been instructed to contact the clinic with any concerns before the next appointment. Dr. Milton has reviewed this note and agrees with this plan of care. This note was dictated using voice recognition software and make contain errors or omissions. All injections are used with Lidocaine or Bupivacaine and Depo Medrol.
[2023-12-09 09:50] VITALS: BP 146/91; PULSE 68; RESP 18; O2SAT 98; BMI 22.8
== END 2023-12-09 23:59 | disposition home or self-care (01) ==
LOC: SC.PAIN 08:54
PROVIDERS: PCP Student in an Organized Health Care Education/Training Program; Visit Provider Nurse Practitioner Family
DX: M51.36 Other intervertebral disc degeneration, lumbar region (principal); M54.50 Low back pain, unspecified; Z96.82 Presence of neurostimulator; F17.210 Nicotine dependence, cigarettes, uncomplicated; F12.90 Cannabis use, unspecified, uncomplicated
CPT/HCPCS: 99202; G0463

== ENCOUNTER 2024-02-02 13:47 | Outpatient (CLI) | payer MEDICARE, SELFPAY ==
--- NOTE | 2024-02-02 14:37 | ECG_ITS ---
APPROVED REPORT Exam: Resting ECG HR:71 bpm ECG Measurements Heart Rate 71 AXES KS 137 P 72 QRSd 99 QRS 51 QT 401 T 63 QTc 423 Conclusion SINUS RHYTHM WITH OCCASIONAL VENTRICULAR PREMATURE COMPLEXES NONSPECIFIC T-WAVE ABNORMALITY BORDERLINE ECG UNCONFIRMED REPORT Electronically signed by : Norbert Davis MD 02/02/2024 16:59:45
[2024-02-02 14:44] VITALS: BMI 22.3
[2024-02-02 15:12] LABS: Basophils # 0.1 K/mm3 (0-0.2); Basophils % 1.3 % (0.1-2.0); Eosinophils # 0.2 K/mm3 (0.0-0.4); Eosinophils % 2.2 % (0.1-12.0); Hematocrit 45.6 % (37.0-47.0); Hemoglobin 15.1 g/dL (12.2-16.2); Lymphocytes # 2.9 K/mm3 (0.7-4.5); Lymphocytes % 31.7 % (10-50); Mean Corpuscular HGB Conc 33.2 g/dL (31.8-35.4); Mean Corpuscular Hemoglobin 30.9 pg (27.0-31.2); Mean Corpuscular Volume 93.2 fl (81-99); Mean Platelet Volume 8.3 fl (7.4-10.4); Monocytes # 0.4 K/mm3 (0.1-1.0); Monocytes % 3.8 % (1.7-9.3); Neutrophils # 5.6 K/mm3 (1.8-7.8); Platelet Count 241 K/mm3 (142-424); Red Blood Count 4.89 M/mm3 (4.20-5.40); Red Cell Distribution Width 14.2 % (11.5-17.5); White Blood Count 9.2 K/mm3 (4.8-10.8)
[2024-02-02 15:20] LABS: Anion Gap 8.7 mEq/L (5-15); Blood Urea Nitrogen 12 mg/dl (7-17); Calcium 8.8 mg/dl (8.4-10.2); Carbon Dioxide 31 mmol/L (22.0-30.0); Chloride 104 mmol/L (98-107); Creatinine Clearance Estimated 74 mL/min (50-200); Estimated Glomerular Filt Rate 74 ml/min (>60); GFR (African American) 90 ML/MIN (>60); Glucose 102 mg/dl (74-100); Potassium 3.7 mmoL/L (3.5-5.1); Sodium 140 mmol/L (136-145)
== END 2024-02-02 23:59 | disposition home or self-care (01) ==
LOC: PREOP 13:49
PROVIDERS: Nurse Anesthetist, Certified Registered; PCP Student in an Organized Health Care Education/Training Program; Visit Provider Anesthesiology
DX: I49.3 Ventricular premature depolarization (principal); R94.31 Abnormal electrocardiogram [ECG] [EKG]; R06.09 Other forms of dyspnea
CPT/HCPCS: 80048; 85025; 93005

== ENCOUNTER 2024-02-05 07:08 | Day surgery (SDC) | payer MEDICARE, SELFPAY ==
[2024-02-02 14:18] VITALS: BMI 22.3
--- NOTE | 2024-02-05 07:36 | P.PNANES_ITS ---
[facility] Disclaimer: The information contained in this section may have been updated after the patient was seen, as this information can be updated by other users. Medical History History of left heart catheterization Left foot pain History of cocaine use Family history of ischemic heart disease before age 50 Abnormal electrocardiogram [ECG] [EKG] Carpal tunnel syndrome Spinal cord stimulator status Myofascial pain syndrome Hyperlipemia Neck Pain Right shoulder pain Cervical radiculopathy Cervical disc disease Cervical osteophyte Spondylosis of cervical spine Surgical History History of back surgery History of carpal tunnel release History of breast augmentation H/O tubal ligation Family History Father Heart attack, Onset Age: 42 Mother Cancer Brother Heart attack Other No significant family history Social History Smoking Status: Current every day smoker tobacco type: cigarettes packs per day: 5 second hand exposure: Yes alcohol intake: never substance use type: marijuana current occupational status: employed and other Travel in the last 8 weeks: None household members: none and other housing: house current occupational exposures/hazards: No caffeine: Yes [facility] Anesthesia Checklist Patient Identification Patient Identification: Arm Band and Verbal (Name & ) Structural Data Admitted From: Home Planned Operative Procedure/s: Stimulator explant Consent for Planned Operative Procedure(s) Verified: Yes Verified Documents: Surgical Consent and History and Physical NPO Status Verified Time NPO: 00:00 Additional verifications Anesthesia Reactions: No Hx Blood Transfusions: No Blood Transfusion Reaction: No Airway Assessment Mallampati Score:: Class II C-Spine Mobility Assessed: Yes TMJ Mobility Assessed: Yes Dentition: Good Dentition Neurological Assessment Level of Consciousness: Awake Hx Seizures: No Numbness or tingling in extremities: No Anesthesia Plan Anesthesia Risk discussed: Yes Anesthesia Plan: Verified ASA Class: II Anesthesia Type: MAC
[2024-02-05] MEDS: LACTATED RINGERS 1000ML 1,000 ML 25 ML IV (07:44)
[2024-02-05 07:46] VITALS: BP 130/83; PULSE 67; RESP 18; TEMP 36.5; O2SAT 93
[2024-02-05] MEDS: VANCOMYCIN/WATER FOR INJ (PEG) 1.25 GM/250 ML PIGGYBACK IV (08:10)
[2024-02-05] MEDS: LIDOCAINE 1% W/EPI 1:100,000 20ML VIAL 40 ML (08:24)
[2024-02-05 08:38] VITALS: BP 100/60; PULSE 78; RESP 16; TEMP 36.3; O2SAT 91
[2024-02-05 08:48] VITALS: BP 111/73; PULSE 83; RESP 16; O2SAT 92
[2024-02-05 08:58] VITALS: BP 110/75; PULSE 80; RESP 16; O2SAT 94
--- NOTE | 2024-02-05 09:00 | EXP.OP.NOTE ---
Date of procedure: 02/05/24 Pre-op Diagnosis:: Nonfunctioning spinal cord stimulator Post-op Diagnosis:: Same Procedure performed:: Explant of stimulator generator and epidural leads x 2 Surgeon:: Pepito Milton MD MANAGER LONG TERM CARE:: Danielle Guadarrama Anesthesia: MAC Estimated blood loss (mL): 2 Clinical Note:: This patient is a pleasant 53-year-old white female who has a nonfunctioning Nu[employer] spinal cord stimulator in place. It is been nonfunctioning for the past 2 years. She is wanting to get it removed. We will remove generator and epidural leads x 2 today. Operative findings:: None Operative note:: Informed consent was obtained risk and benefits of the procedure were explained to the patient. Patient was taken to the operating room placed prone on the procedure table. She was prepped and draped in sterile fashion. C-arm fluoroscopy was used to view the generator and leads. The skin and subcutaneous tissues overlying the generator and lead anchors were anesthetized using lidocaine. I made incision dissected out the generator. I disconnected the leads. I then made an incision dissected out the lead anchors. I have removed the lead anchors and leads. We confirmed this with C arm fluoroscopy. Both incisions were then closed with 2-0 Vicryl followed by 4-0 nylon and estrada. Patient tolerated the procedure well with no complications. Patient was discharged home neurologic intact with good relief of pain symptoms. Plan and disposition: Will follow-up with this patient in 1 week for wound check and in 2 to 3 weeks for suture and staple removal. Condition: stable Disposition: PACU Complications:: None
[2024-02-05 09:08] VITALS: BP 120/71; PULSE 86; RESP 16; O2SAT 98
== END 2024-02-05 09:10 | disposition home or self-care (01) ==
PROVIDERS: PCP Student in an Organized Health Care Education/Training Program; Visit Provider Anesthesiology
PROC: (CPT 63661; principal; 2024-02-05 08:30)
DX: T85.695A Other mechanical complication of other nervous system device, implant or graft, initial encounter (principal)
CPT/HCPCS: 63661; 63688; 96374; J2250; J7120

== ENCOUNTER 2024-02-12 11:01 | Outpatient (POV) | payer MEDICARE, SELFPAY ==
--- NOTE | 2024-02-12 11:23 | A.OFFVIS_ITS ---
[facility] Disclaimer: The information contained in this section may have been updated after the patient was seen, as this information can be updated by other users. Medical History History of left heart catheterization Left foot pain History of cocaine use Family history of ischemic heart disease before age 50 Abnormal electrocardiogram [ECG] [EKG] Carpal tunnel syndrome Spinal cord stimulator status Myofascial pain syndrome Hyperlipemia Neck Pain Right shoulder pain Cervical radiculopathy Cervical disc disease Cervical osteophyte Spondylosis of cervical spine Surgical History History of back surgery History of carpal tunnel release History of breast augmentation H/O tubal ligation Family History Father Heart attack, Onset Age: 42 Mother Cancer Brother Heart attack Other No significant family history Social History (Updated 02/05/24 @ 07:41 by Christa Hedrick RN) Smoking Status: Current every day smoker tobacco type: cigarettes packs per day: 5 second hand exposure: Yes alcohol intake: never substance use type: marijuana current occupational status: employed and other Travel in the last 8 weeks: None household members: none and other housing: house current occupational exposures/hazards: No caffeine: Yes PM Subjective & Objective Subjective Subjective:: Patient is a pleasant 53-year-old female who presents today for follow-up of 1 week postop removal of nonfunctioning spinal cord stimulator. Today she rates her pain a 7 out of 10. Patient denies any new changes or new injuries. She does state that she does have her chronic aches and pains in the knee incisional pain. She states she has done well since having it taken out. Patient does state that the compounded cream we have given in the past was very helpful however she does know that she cannot put it around her incisions at this time until they are healed. Her Jaquan has been reviewed and is appropriate. Review of Systems: General: No recent weight changes, no fever, no sleep disturbances Respiratory: No cough, no shortness of air, no recurring pulmonary infections Cardiovascular/peripheral vascular: No chest pain, no palpitations, no edema, no shortness of breath Gastrointestinal: No new onset incontinence, normal bowel movements reported Genitourinary: No new onset incontinence Musculoskeletal: Low back pain mid back pain Psychiatric: [Normal mood/affect] Neurological: [Denies weakness in extremities], [denies balance issues] Pain at rest (0-10 scale): 7 Objective Objective:: Physical Exam: General: Alert and oriented x3, no acute distress, pleasant and cooperative Lungs: Respirations even and unlabored, symmetrical chest expansion Eyes: PERRL Musculoskeletal: Flexion and extension of lumbar [spine] somewhat guarded secondary to pain, [antalgic gait noted] Neurological: Speech clear, no gross sensory deficit Skin: Incision sites are clean, dry, well-approximated with sutures and estrada intact and no erythema noted. Has patient had previous pain injection?: No Conservative treatment options previously tried: Home exercise plan Length of treatment: Longer than 12 weeks Meds Home Medications and Allergies Home Medications ?Medication ?Instructions ?Recorded ?Confirmed ?Type budesonide-formoterol HFA 160 1 inh inhalation BID #10.2 grams 05/13/23 02/05/24 Rx mcg-4.5 mcg/actuation aerosol inhaler (Symbicort) Ventolin HFA 90 mcg/actuation 2 puff inhalation Q6H #18 grams 01/13/24 02/05/24 Rx aerosol inhaler (albuterol sulfate) atorvastatin 80 mg tablet (Lipitor) 80 mg PO DAILY 01/29/24 02/05/24 History cholecalciferol (vitamin D3) 50 50 mcg PO DAILY 01/29/24 02/05/24 History mcg (2,000 unit) capsule (Vitamin D3) New Prescriptions to Start Prescriptions: Allergies Allergy/AdvReac Type Severity Reaction Status Date / Time No Known Allergies Allergy Verified 02/05/24 07:46 Assessment and Plan *Assessment and plan (1) Low back pain: Status: Acute Category: Medical Code(s): M54.50 - Low back pain, unspecified Plan Patient is doing well overall from her spinal cord stimulator removal. Patient was counseled to follow her postop restrictions the full 6 weeks and that we will plan on taking out the sutures and estrada in 2 weeks. Patient denies any heart or kidney issues. I will send in a 2-week supply of meloxicam 15 mg d aily. Patient was counseled to discontinue all other NSAIDs while taking this medication and to take it with food to minimize GI upset. Patient will return to clinic in 2 weeks for reevaluation of symptoms and plan of care. Patient has been instructed to contact the clinic with any concerns before the next appointment. Dr. Milton has reviewed this note and agrees with this plan of care. This note was dictated using voice recognition software and make contain errors or omissions. All injections are used with Lidocaine or Bupivacaine and Depo Medrol.
[2024-02-12 12:49] VITALS: BP 121/72; PULSE 75; RESP 16; O2SAT 96; BMI 22.3
== END 2024-02-12 23:59 | disposition home or self-care (01) ==
PROVIDERS: PCP Student in an Organized Health Care Education/Training Program; Visit Provider Nurse Practitioner Family
DX: M54.50 Low back pain, unspecified (principal); F17.210 Nicotine dependence, cigarettes, uncomplicated
CPT/HCPCS: 99212; G0463

== ENCOUNTER 2024-03-02 13:05 | Outpatient (POV) | payer MEDICARE, SELFPAY ==
--- NOTE | 2024-03-02 14:06 | A.OFFVIS_ITS ---
[facility] Disclaimer: The information contained in this section may have been updated after the patient was seen, as this information can be updated by other users. Medical History History of left heart catheterization Left foot pain History of cocaine use Family history of ischemic heart disease before age 50 Abnormal electrocardiogram [ECG] [EKG] Carpal tunnel syndrome Spinal cord stimulator status Myofascial pain syndrome Hyperlipemia Neck Pain Right shoulder pain Cervical radiculopathy Cervical disc disease Cervical osteophyte Spondylosis of cervical spine Surgical History History of back surgery History of carpal tunnel release History of breast augmentation H/O tubal ligation Family History Father Heart attack, Onset Age: 42 Mother Cancer Brother Heart attack Other No significant family history Social History (Updated 02/05/24 @ 07:41 by Christa Hedrick RN) Smoking Status: Current every day smoker tobacco type: cigarettes packs per day: 5 second hand exposure: Yes alcohol intake: never substance use type: marijuana current occupational status: other Travel in the last 8 weeks: None household members: none and other housing: house current occupational exposures/hazards: No caffeine: Yes PM Subjective & Objective Subjective Subjective:: Patient is a pleasant 53-year-old female who presents today for 2-week follow- up. Today she rates her pain a 5 out of 10. She denies any new trauma or injury. At our last visit we did prescribe her meloxicam however she states she did not notice any additional improvement. Patient did have her nonfunctioning spinal cord stimulator removed and does still have her sutures and estrada in place. She denies any other changes. Her Jaquan has been reviewed and is appropriate. Review of Systems: General: No recent weight changes, no fever, no sleep disturbances Respiratory: No cough, no shortness of air, no recurring pulmonary infections Cardiovascular/peripheral vascular: No chest pain, no palpitations, no edema, no shortness of breath Gastrointestinal: No new onset incontinence, normal bowel movements reported Genitourinary: No new onset incontinence Musculoskeletal: Low back pain, leg pain Psychiatric: [Normal mood/affect] Neurological: [Denies weakness in extremities], [denies balance issues] Pain at rest (0-10 scale): 5 Objective Objective:: Physical Exam: General: Alert and oriented x3, no acute distress, pleasant and cooperative Lungs: Respirations even and unlabored, symmetrical chest expansion Eyes: PERRL Musculoskeletal: Flexion and extension of lumbar [spine] somewhat guarded secondary to pain, [antalgic gait noted] Neurological: Speech clear, no gross sensory deficit Skin: Incision sites are clean, dry, well-approximated with sutures and estrada intact and minimal erythema noted Has patient had previous pain injection?: No Conservative treatment options previously tried: Home exercise plan Length of treatment: Longer than 12 weeks Meds Home Medications and Allergies Home Medications ?Medication ?Instructions ?Recorded ?Confirmed ?Type budesonide-formoterol HFA 160 1 inh inhalation BID #10.2 grams 05/13/23 02/12/24 Rx mcg-4.5 mcg/actuation aerosol inhaler (Symbicort) Ventolin HFA 90 mcg/actuation 2 puff inhalation Q6H #18 grams 01/13/24 02/12/24 Rx aerosol inhaler (albuterol sulfate) atorvastatin 80 mg tablet (Lipitor) 80 mg PO DAILY 01/29/24 02/12/24 History cholecalciferol (vitamin D3) 50 50 mcg PO DAILY 01/29/24 02/12/24 History mcg (2,000 unit) capsule (Vitamin D3) meloxicam 15 mg tablet 15 mg PO DAILY #14 tabs 02/12/24 Rx New Prescriptions to Start Prescriptions: Allergies Allergy/AdvReac Type Severity Reaction Status Date / Time No Known Allergies Allergy Verified 02/05/24 07:46 Assessment and Plan *Assessment and plan (1) Low back pain: Status: Acute Category: Medical Code(s): M54.50 - Low back pain, unspecified Plan Patient was counseled to continue her postop restrictions the full 6 weeks including no submerging in water until her incisions are fully healed, minimal bending, twisting or lifting. Patient was able to have most of her estrada were removed and had all of her sutures removed. We will have the patient back next week to remove the remaining estrada. Patient agrees with this plan of care. Patient has been instructed to contact the clinic with any concerns before the next appointment. Dr. Milton has reviewed this note and agrees with this plan of care. This note was dictated using voice recognition software and make contain errors or omissions. All injections are used with Lidocaine or Bupivacaine and Depo Medrol.
[2024-03-02 16:21] VITALS: BP 142/92; PULSE 82; RESP 14; O2SAT 98; BMI 22.3
== END 2024-03-02 23:59 | disposition home or self-care (01) ==
LOC: SC.PAIN 13:07
PROVIDERS: PCP Student in an Organized Health Care Education/Training Program; Visit Provider Nurse Practitioner Family
DX: M54.50 Low back pain, unspecified (principal); F17.210 Nicotine dependence, cigarettes, uncomplicated
CPT/HCPCS: 99212; G0463

== ENCOUNTER 2024-03-10 14:08 | Outpatient (POV) | payer MEDICARE, SELFPAY ==
--- NOTE | 2024-03-10 14:30 | A.OFFVIS_ITS ---
[facility] Disclaimer: The information contained in this section may have been updated after the patient was seen, as this information can be updated by other users. Medical History History of left heart catheterization Left foot pain History of cocaine use Family history of ischemic heart disease before age 50 Abnormal electrocardiogram [ECG] [EKG] Carpal tunnel syndrome Spinal cord stimulator status Myofascial pain syndrome Hyperlipemia Neck Pain Right shoulder pain Cervical radiculopathy Cervical disc disease Cervical osteophyte Spondylosis of cervical spine Surgical History History of back surgery History of carpal tunnel release History of breast augmentation H/O tubal ligation Family History Father Heart attack, Onset Age: 42 Mother Cancer Brother Heart attack Other No significant family history Social History (Updated 02/05/24 @ 07:41 by Christa Hedrick RN) Smoking Status: Current every day smoker tobacco type: cigarettes packs per day: 5 second hand exposure: Yes alcohol intake: never substance use type: marijuana current occupational status: other Travel in the last 8 weeks: None household members: none and other housing: house current occupational exposures/hazards: No caffeine: Yes PM Subjective & Objective Subjective Subjective:: Patient is a pleasant 53-year-old female who presents today for staple removal. Today she rates her pain a 5 out of 10. She denies any new trauma or injury. She states overall she is continued to do well from her stimulator explant. Her Jaquan has been reviewed and is appropriate. Review of Systems: General: No recent weight changes, no fever, no sleep disturbances Respiratory: No cough, no shortness of air, no recurring pulmonary infections Cardiovascular/peripheral vascular: No chest pain, no palpitations, no edema, no shortness of breath Gastrointestinal: No new onset incontinence, normal bowel movements reported Genitourinary: No new onset incontinence Musculoskeletal: Low back pain Psychiatric: [Normal mood/affect] Neurological: [Denies weakness in extremities], [denies balance issues] Pain at rest (0-10 scale): 5 Objective Objective:: Physical Exam: General: Alert and oriented x3, no acute distress, pleasant and cooperative Lungs: Respirations even and unlabored, symmetrical chest expansion Eyes: PERRL Musculoskeletal: Flexion and extension of lumbar [spine] somewhat guarded secondary to pain Neurological: Speech clear, no gross sensory deficit Has patient had previous pain injection?: No Conservative treatment options previously tried: Home exercise plan Length of treatment: Longer than 12 weeks Meds Home Medications and Allergies Home Medications ?Medication ?Instructions ?Recorded ?Confirmed ?Type budesonide-formoterol HFA 160 1 inh inhalation BID #10.2 grams 05/13/23 03/02/24 Rx mcg-4.5 mcg/actuation aerosol inhaler (Symbicort) Ventolin HFA 90 mcg/actuation 2 puff inhalation Q6H #18 grams 01/13/24 03/02/24 Rx aerosol inhaler (albuterol sulfate) atorvastatin 80 mg tablet (Lipitor) 80 mg PO DAILY 01/29/24 03/02/24 History cholecalciferol (vitamin D3) 50 50 mcg PO DAILY 01/29/24 03/02/24 History mcg (2,000 unit) capsule (Vitamin D3) meloxicam 15 mg tablet 15 mg PO DAILY #14 tabs 02/12/24 03/02/24 Rx New Prescriptions to Start Prescriptions: Allergies Allergy/AdvReac Type Severity Reaction Status Date / Time No Known Allergies Allergy Verified 02/05/24 07:46 Assessment and Plan *Assessment and plan (1) Low back pain: Status: Acute Category: Medical Code(s): M54.50 - Low back pain, unspecified Plan Patient's incisions are clean, dry, well-approximated with no erythema noted. We were able to remove the remainder of her estrada and had skin glue and Steri- Strips applied. Patient was counseled to continue her postop restrictions the full 6 weeks. Patient will return to clinic in 1 month for reevaluation of symptoms and plan of care. Patient has been instructed to contact the clinic with any concerns before the next appointment. Dr. Milton has reviewed this note and agrees with this plan of care. This note was dictated using voice recognition software and make contain errors or omissions. All injections are used with Lidocaine, Bupivacaine and Depo Medrol. Occasionally urine drug screen is needed to verify patient's compliance with our office pain contract. This is ordered based off specific treatments related to chronic pain with the potential to abuse certain medications.
[2024-03-10 14:32] VITALS: BP 126/83; PULSE 87; RESP 18; O2SAT 95; BMI 22.3
== END 2024-03-10 23:59 | disposition home or self-care (01) ==
LOC: SC.PAIN 14:09
PROVIDERS: PCP Student in an Organized Health Care Education/Training Program; Visit Provider Nurse Practitioner Family
DX: M54.50 Low back pain, unspecified (principal); F17.210 Nicotine dependence, cigarettes, uncomplicated
CPT/HCPCS: 99212; 99213; G0463

== ENCOUNTER 2024-04-07 13:02 | Outpatient (POV) | payer MEDICARE, SELFPAY ==
[2024-04-07 13:21] VITALS: BP 120/77; PULSE 73; RESP 16; O2SAT 100; BMI 22.3
--- NOTE | 2024-04-07 13:22 | A.OFFVIS_ITS ---
[facility] Disclaimer: The information contained in this section may have been updated after the patient was seen, as this information can be updated by other users. Medical History History of left heart catheterization Left foot pain History of cocaine use Family history of ischemic heart disease before age 50 Abnormal electrocardiogram [ECG] [EKG] Carpal tunnel syndrome Spinal cord stimulator status Myofascial pain syndrome Hyperlipemia Neck Pain Right shoulder pain Cervical radiculopathy Cervical disc disease Cervical osteophyte Spondylosis of cervical spine Surgical History History of back surgery History of carpal tunnel release History of breast augmentation H/O tubal ligation Family History Father Heart attack, Onset Age: 42 Mother Cancer Brother Heart attack Other No significant family history Social History (Updated 02/05/24 @ 07:41 by Christa Hedrick RN) Smoking Status: Current every day smoker tobacco type: cigarettes packs per day: 5 second hand exposure: Yes alcohol intake: never substance use type: marijuana current occupational status: other Travel in the last 8 weeks: None household members: none and other housing: house current occupational exposures/hazards: No caffeine: Yes PM Subjective & Objective Subjective Subjective:: Patient is a pleasant 53-year-old female who presents today for 1 month follow- up. Today she rates her pain a 6 out of 10. She denies any new trauma or injury. She does state that she still has chronic aches and pains throughout her low back. Patient did have a nonfunctioning spinal cord stimulator explanted and is done well with this. Patient denies any heart or kidney issues. She is prescribed compounded cream from our office. Her Jaquan has been reviewed and is appropriate. Review of Systems: General: No recent weight changes, no fever, no sleep disturbances Respiratory: No cough, no shortness of air, no recurring pulmonary infections Cardiovascular/peripheral vascular: No chest pain, no palpitations, no edema, no shortness of breath Gastrointestinal: No new onset incontinence, normal bowel movements reported Genitourinary: No new onset incontinence Musculoskeletal: Low back pain Psychiatric: [Normal mood/affect] Neurological: [Denies weakness in extremities], [denies balance issues] Pain at rest (0-10 scale): 6 Objective Objective:: Physical Exam: General: Alert and oriented x3, no acute distress, pleasant and cooperative Lungs: Respirations even and unlabored, symmetrical chest expansion Eyes: PERRL Musculoskeletal: Flexion and extension of lumbar [spine] somewhat guarded secondary to pain Neurological: Speech clear, no gross sensory deficit Has patient had previous pain injection?: No Conservative treatment options previously tried: Home exercise plan Length of treatment: Longer than 12 weeks Meds Home Medications and Allergies Home Medications ?Medication ?Instructions ?Recorded ?Confirmed ?Type budesonide-formoterol HFA 160 1 inh inhalation BID #10.2 grams 05/13/23 03/10/24 Rx mcg-4.5 mcg/actuation aerosol inhaler (Symbicort) Ventolin HFA 90 mcg/actuation 2 puff inhalation Q6H #18 grams 01/13/24 03/10/24 Rx aerosol inhaler (albuterol sulfate) atorvastatin 80 mg tablet (Lipitor) 80 mg PO DAILY 01/29/24 03/10/24 History cholecalciferol (vitamin D3) 50 50 mcg PO DAILY 01/29/24 03/10/24 History mcg (2,000 unit) capsule (Vitamin D3) meloxicam 15 mg tablet 15 mg PO DAILY #30 tabs 04/07/24 Rx methocarbamol 500 mg tablet 500 mg PO BID #28 tabs 04/07/24 Rx New Prescriptions to Start Prescriptions: meloxicam DaltonVicki A methocarbamol Vicki Hoffman Allergies Allergy/AdvReac Type Severity Reaction Status Date / Time No Known Allergies Allergy Verified 02/05/24 07:46 Assessment and Plan *Assessment and plan (1) Low back pain: Status: Acute Category: Medical Code(s): M54.50 - Low back pain, unspecified Plan Patient's incisions have fully healed from her spinal cord stimulator explant. Patient has been released from postop restrictions. I did review over with her that she may benefit from a daily antiinflammatory. Patient was sent in prior to week dose of meloxicam 15 mg daily. I will send in a 1 month supply of this medication and also send in a new prescription of methocarbamol 500 mg twice daily as needed. Patient will return to clinic in 2 weeks for reevaluation of symptoms and plan of care. Patient has been instructed to contact the clinic with any concerns before the next appointment. Dr. Milton has reviewed this note and agrees with this plan of care. This note was dictated using voice recognition software and make contain errors or omissions. All injections are used with Lidocaine, Bupivacaine and Depo Medrol. Occasionally urine drug screen is needed to verify patient's compliance with our office pain contract. This is ordered based off specific treatments related to chronic pain with the potential to abuse certain medications.
== END 2024-04-07 23:59 | disposition home or self-care (01) ==
PROVIDERS: PCP Student in an Organized Health Care Education/Training Program; Visit Provider Nurse Practitioner Family
DX: M54.50 Low back pain, unspecified (principal); F17.210 Nicotine dependence, cigarettes, uncomplicated
CPT/HCPCS: 99212; G0463

== ENCOUNTER 2024-05-26 09:22 | Outpatient (CLI) | payer MEDICARE, SELFPAY ==
--- NOTE | 2024-05-26 09:23 | US_ITS ---
FINAL REPORT CLINICAL HISTORY: swelling FINDINGS: Limited sonographic images of the right temporal area were obtained. Deep to the subcutaneous tissues is a questionable elongated solid structure accounting for the palpable abnormality measuring 22 x 23 x 42 mm. It is unclear whether this is normal muscle or a mass. No fluid collection identified. IMPRESSION: Nonspecific abnormality on ultrasound. Consider MRI correlation with and without contrast to better assess. Reviewed, Interpreted and Dictated by Jan Tracy MD Transcribed by Cyndy Daniel Authenticated and [facility]
[2024-05-26 09:43] LABS: Basophils # 0.1 K/mm3 (0-0.2); Basophils % 0.7 % (0.1-2.0); Eosinophils # 0.1 K/mm3 (0.0-0.4); Eosinophils % 1.3 % (0.1-12.0); Hematocrit 50.3 % (37.0-47.0); Hemoglobin 16.9 g/dL (12.2-16.2); Lymphocytes # 2.8 K/mm3 (0.7-4.5); Lymphocytes % 26.9 % (10-50); Mean Corpuscular HGB Conc 33.6 g/dL (31.8-35.4); Mean Corpuscular Hemoglobin 30.1 pg (27.0-31.2); Mean Corpuscular Volume 89.7 fl (81-99); Mean Platelet Volume 10.1 fl (7.4-10.4); Monocytes # 0.4 K/mm3 (0.1-1.0); Monocytes % 3.9 % (1.7-9.3); Neutrophils # 6.8 K/mm3 (1.8-7.8); Neutrophils % 66.9 % (37.0-80.0); Platelet Count 283 K/mm3 (142-424); Red Blood Count 5.61 M/mm3 (4.20-5.40); Red Cell Distribution Width 13.8 % (11.5-17.5); White Blood Count 10.2 K/mm3 (4.8-10.8)
[2024-05-26 10:29] LABS: Erythrocyte Sedimentation Rate 3 mm/hr (0-30)
[2024-05-26 10:59] LABS: Chloride 103 mmol/L (98-107)
[2024-05-26 11:00] LABS: Albumin Level 4.9 g/dl (3.5-5.0); Potassium 4.8 mmoL/L (3.5-5.1); Sodium 140 mmol/L (136-145)
[2024-05-26 11:02] LABS: Blood Urea Nitrogen 15 mg/dl (7-17); Estimated Glomerular Filt Rate 58 ml/min (>60); GFR (African American) 70 ML/MIN (>60)
[2024-05-26 11:03] LABS: Alanine Aminotransferase 21 U/L (12-78); Albumin/Globulin Ratio 2.1 (1.1-1.8); Alkaline Phosphatase 68 U/L (38-126); Anion Gap 10.8 mEq/L (5-15); Aspartate Amino Transferase 26 U/L (14-36); Bilirubin,Total 0.6 mg/dl (0.2-1.3); Calcium 9.8 mg/dl (8.4-10.2); Carbon Dioxide 31 mmol/L (22.0-30.0); Globulin 2.3 g/dL (1.3-3.2); Glucose 99 mg/dl (74-100); Total Protein,Serum 7.2 g/dl (6.3-8.2)
[2024-05-26 11:10] LABS: C-Reactive Protein 1.7 mg/L (0-4)
== END 2024-05-26 23:59 | disposition home or self-care (01) ==
LOC: RAD 09:23
PROVIDERS: PCP Family Medicine; Visit Provider Family Medicine
DX: R51.9 Headache, unspecified (principal); G89.29 Other chronic pain
CPT/HCPCS: 36415; 76536; 80053; 85025; 85651; 86140

== ENCOUNTER 2024-06-06 08:02 | Outpatient (CLI) | payer MEDICARE, SELFPAY ==
--- NOTE | 2024-06-06 08:03 | MR_ITS ---
FINAL REPORT TECHNIQUE: Multiplanar MR, without and with gadolinium enhancement CLINICAL HISTORY: chronic headaches knot on side of head , marked with a bb , knot has been there 3-4 years headaches hx of mini strokes ringing in bilateral ears 12 ml prohance COMPARISON: None FINDINGS: Diffusion sequences show no signal abnormality to indicate acute infarct. No mass, hemorrhage or edema is seen. Ventricles are normal. Major vascular flow voids are intact. There is a small area of cortical encephalomalacia in the left parietal lobe, which does not enhance after contrast administration. Following contrast administration, no mass or abnormal enhancement is seen. There is an ovoid subcutaneous right frontal lesion identified, which appears to account for the palpable abnormality, and which likely represents a complex fluid collection. This area measures 17 mm in diameter and 5 mm in thickness. There is no definite enhancement noted, although subtle enhancement would be difficult to easily visualize secondary to increased T1 signal on both pre and postcontrast enhanced images. This lesion does not have aggressive features such as calvarial invasion or muscle invasion. IMPRESSION: Small area of cortical encephalomalacia, without evidence of enhancement. Subcutaneous probable complex fluid collection in the right frontal region without aggressive features as described above. Reviewed, Interpreted and Dictated by Jan Tracy MD Transcribed by Kailey Price Authenticated and . [facility]
[2024-06-06] MEDS: GADOTERIDOL INJ 20ML SYRINGE 12 ML IV (08:53)
[2024-06-06] MEDS: SODIUM CHLORIDE 0.9% 10ML SYR (RAD ONLY) 10 ML IV (08:53)
== END 2024-06-06 23:59 | disposition home or self-care (01) ==
LOC: RAD 08:03
PROVIDERS: PCP Family Medicine; Visit Provider Family Medicine
DX: R51.9 Headache, unspecified (principal); G89.29 Other chronic pain
CPT/HCPCS: 70553; A9576

== ENCOUNTER 2024-07-06 06:19 | Day surgery (SDC) | payer MEDICARE, SELFPAY ==
[2024-07-04 16:55] VITALS: BMI 24.7
[2024-07-06 06:47] VITALS: BP 151/82; PULSE 64; RESP 18; TEMP 36.4; O2SAT 95
[2024-07-06] MEDS: LIDOCAINE 1% 20ML MDV 20 ML (07:11)
[2024-07-06 07:40] VITALS: BP 165/96; PULSE 60; RESP 16; TEMP 36.3; O2SAT 96
--- NOTE | 2024-07-06 07:42 | EXP.OP.NOTE ---
Date of procedure: 07/06/24 Pre-op Diagnosis:: Right scalp soft tissue mass (likely lipoma) -2 cm Post-op Diagnosis:: Same Procedure performed:: Excision of 2 cm right scalp soft tissue mass Surgeon:: Lucien Arciniega MD Anesthesia: local Estimated blood loss (mL): 10 Operative findings:: Lesion excised in toto Operative note:: After informed consent was obtained the patient was taken to the procedure room. Her right scalp region was prepped and draped in a sterile fashion. After infiltration with local anesthetic an incision was made overlying the palpable lesion. A combination of sharp dissection, blunt dissection, and electrocautery was utilized to transect through the deep subcutaneous tissue. The lesion was excised in toto and passed off for pathologic evaluation. Electrocautery was utilized to achieve hemostasis. Skin was reapproximated with interrupted 6-0 nylon in an interrupted mattress fashion. Dressings were applied and the patient was discharged home in stable condition. Condition: stable Disposition: no change Specimens:: Right scalp soft tissue mass Complications:: No immediate
== END 2024-07-06 07:56 | disposition home or self-care (01) ==
PROVIDERS: PCP Family Medicine; Visit Provider Surgery
PROC: (CPT 21012; principal; 2024-07-06 07:30)
DX: D17.0 Benign lipomatous neoplasm of skin and subcutaneous tissue of head, face and neck (principal); R52 Pain, unspecified
CPT/HCPCS: 21012; 88304

== ENCOUNTER 2024-07-15 18:11 | Outpatient (CLI) | payer MEDICARE, SELFPAY ==
[2024-07-15 18:52] LABS: Alanine Aminotransferase 16 U/L (12-78); Albumin Level 4.3 g/dl (3.5-5.0); Albumin/Globulin Ratio 1.6 (1.1-1.8); Alkaline Phosphatase 63 U/L (38-126); Anion Gap 7.5 mEq/L (5-15); Aspartate Amino Transferase 21 U/L (14-36); Bilirubin,Total 0.6 mg/dl (0.2-1.3); Blood Urea Nitrogen 13 mg/dl (7-17); Calcium 9.5 mg/dl (8.4-10.2); Carbon Dioxide 25 mmol/L (22.0-30.0); Chloride 109 mmol/L (98-107); Chol/HDL Ratio 2.4 (1-3.5); Cholesterol 184 mg/dl (140-200); Estimated Glomerular Filt Rate 74 ml/min (>60); GFR (African American) 90 ML/MIN (>60); Globulin 2.7 g/dL (1.3-3.2); Glucose 92 mg/dl (74-100); HDL Cholesterol 78 mg/dl (40-60); Potassium 4.5 mmoL/L (3.5-5.1); Sodium 137 mmol/L (136-145); Triglycerides 78 mg/dl (30-150); VLDL Cholesterol 16 mg/dL (0-40)
[2024-07-15 19:03] LABS: Direct LDL Cholesterol 86.18 mg/dL (100-129)
== END 2024-07-15 23:59 | disposition home or self-care (01) ==
LOC: LAB 18:12
PROVIDERS: PCP Family Medicine; Visit Provider Family Medicine
DX: E78.5 Hyperlipidemia, unspecified (principal); D17.0 Benign lipomatous neoplasm of skin and subcutaneous tissue of head, face and neck; R51.9 Headache, unspecified
CPT/HCPCS: 80053; 80061

== ENCOUNTER 2025-01-05 15:06 | Outpatient (CLI) | payer MEDICARE, SELFPAY ==
--- OUTSIDE RECORDS SUMMARY | 2025-01-05 15:09 | XMS_ITS | Clinical Summary ---
Author Organization [facility] Address [facility] [place] [address] Care Team Providers Care Master Welder Name Role Phone Tabatha Villalta Primary Care Provider [phone] Family History Medical History Relation Name Comments Cardiac disorder Father Conversions - Other Sister borderli ne diabetes mellitus Relation Name Status Comments Father Sister Social History Tobacco Use Types Packs/Day Years Used Date Smoking Tobacco: Every Day Comments Unknown Sex and Gender Information Value Date Recorded Sex Assigned at Not on file Legal Sex Female 8:46 PM EDT Gender Identity Not on file Sexual Orientation Not on file Last Filed Vital Signs Vital Sign Reading Time Taken Comments Blood Pressure 116/76 11/17/2017 10:58 AM EDT Pulse 72 11/17/2017 10:58 AM EDT Temperature - - Respiratory Rate - - Oxygen Saturation - - Inhaled Oxygen Concentration - - Weight 59.6 kg (131 lb 6.3 oz) 11/17/2017 10:58 AM EDT Height 162.6 cm (5' 4 ) 11/17/2017 10:58 AM EDT Body Mass Index 22.55 11/17/2017 10:58 AM EDT Plan of Treatment Not on file Insurance [facility] MOHSEN MCCOOL [place] AGUIL[place] [id number] [facility] MEDICARE Care Teams Master Welder Relationship Specialty Start Date End Date Tabatha Villalta PA [address] [place] [address] PCP - General 08/03/20
--- OUTSIDE RECORDS SUMMARY | 2025-01-05 15:09 | XMS_ITS | Clinical Summary ---
[facility] Organization [facility] Address [address] [place] [address] Care Team Providers Care Assistant Portfolio Manager Name Role Phone Antony Gutierrez MD Primary Care Provider [phone] Allergies No known active allergies Medications cholecalciferol (VITAMIN D3) 25 MCG (1000 UT) tablet Take 1 tablet by mouth Daily. Active Diclofenac Sodium (VOLTAREN) 1 % gel gelIndications:C hronic bilateral low back pain without sciatica Apply 4 g topically to the appropriate area as directed 4 (Four) Times a Day As Needed (Pain). Apply topically to area of pain, no more than 4 times daily, no more than total of 4 g application, as needed 100 g 1 3 Active atorvastatin (Lipitor) 20 MG tabletIndication s:Dyslipidemia Take 1 tablet by mouth Every Night. 90 tablet 3 3 Active Fluticasone-Umec lidin-Vilant (Trelegy Ellipta) 100-62.5-25 MCG/ACT inhalerIndicatio ns:COPD (chronic obstructive pulmonary disease) with chronic bronchitis INHALE 1 PUFF ONCE DAILY, RINSE MOUTH WITH WATER AFTER USE 180 each 2 3 Active albuterol sulfate HFA 108 (90 Base) MCG/ACT inhalerIndicatio ns:COPD (chronic obstructive pulmonary disease) with chronic bronchitis INHALE 2 PUFFS BY MOUTH EVERY 4 HOURS NEEDED FOR WHEEZING OR SHORTNESS OF AIR 18 g 2 3 Active Active Problems Problem Noted Date Diagnosed Date Screening for cervical cancer 11/25/2022 Encounter for screening mamm ogram for malignant neoplasm of breast 11/25/2022 Vitamin D deficiency 06/13/2022 Chronic pain of left knee 06/13/2022 Right wrist pain 06/13/2022 Atypical chest pain 06/13/2022 Prediabetes 06/12/2022 Dyslipidemia 06/12/2022 COPD (chronic obstructive pu lmonary disease) with chronic bronchitis 06/12/2022 Lumbago 06/12/2022 Cervicalgia 06/12/2022 GERD (gastroesophageal reflux disease) Anxiety and depression 06/12/2022 Immunizations Immunization Administration Dates Next Due 31-influenza Vac Quardvalent Preservativ 017 Influenza, Unspecified 02/03/2017 Social History Tobacco Use Types Packs/Day Years Used Date Smoking Tobacco: Every Day Cigarettes 0.3 32 Smokeless Tobacco: Never Tobacco Cessation:Ready to Q uit: Not Asked; Counseling Given: Not Answered Alcohol Use Standard Drinks/Week Comments Yes 0 (1 standard drink = 0.6 oz pur e alcohol) 03/24 pint week PHQ-2 Answer Date Recorded Retired PHQ-9: Brief Depression Severity Measure Score 0 08/22/2022 Abuse Screen Answer Date Recorded Unsafe at Home or Work/School Not on file Feels Threatened by Someone? Not on file 11/2022 Does Anyone Keep You from Co ntacting Others or Doint Things Outside the Home? Not on file 12/29/2022 Physical Sign of Abuse Present Not on file 1 Housing Stability Answer Date Recorded Current Living Arrangements Not on file 11/2022 Potentially Unsafe Housing Conditions Not on renan e 12/29/2022 Family and Community Support Answer Zion e Recorded Help with Day-to-Day Activities Not on file 12/29/2022 Lonely or Isolated Not on file 12/29/2022 Employment Answer Date Recorded Do you want help finding or keeping work or a deloris b? Not on file 12/29/2022 Disabilities Answer Date Recorded Concentrating, Remembering, or Making Decisions Difficulty Not on file 12/29/2022 Doing Errands Independently Difficulty Not on fi le 12/29/2022 Education Answer Date Recorded Help with school or training? Not on file Preferred Language Not on file 12/29/2022 PHQ-2 Answer Date Recorded Retired PHQ-9: Brief Depression Severity Measure Score 0 08/22/2022 Comments Unknown Sex and Gender Information Value Date Recorded Sex Assigned at Not on file Legal Sex Female 4:51 PM EDT Gender Identity Not on file Sexual Orientation Not on file Last Filed Vital Signs Vital Sign Reading Time Taken Comments Blood Pressure 134/82 11/25/2022 8:44 AM EDT Pulse 57 11/25/2022 8:44 AM EDT Temperature 36.2 C (97.2 F) 11/25/2022 8:44 AM EDT Respiratory Rate - - Oxygen Saturation 97% 11/25/2022 8:44 AM EDT Inhaled Oxygen Concentration - - Weight 63 kg (138 lb 12.8 oz) 11/25/2022 8:44 AM EDT Height 162.6 cm (5' 4 ) 11/25/2022 8:44 AM EDT Body Mass Index 23.82 11/25/2022 8:44 AM EDT Plan of Treatment Health Maintenance Due Date Last Done Comments Annual Gynecologic Pelvic and Breast Exam 1968 Pneumococcal Vaccine 50+ (1 of 2 - PCV) 06/04/1987 TDAP/TD VACCINES (1 - Tdap) 06/04/1987 COLOGUARD 2013 COLON CANCER SCREENING 5 YEA R SIGMOIDOSCOPY 2013 CT COLONOGRAPHY 2013 FECAL OCCULT BLOOD TEST 2013 FIT Testing (1 year) 2013 ZOSTER VACCINE (1 of 2) 2018 ANNUAL WELLNESS VISIT 06/14/2023 06/13/2022 MAMMOGRAM 09/12/2023 09/11/2021, 09/11/2021 COLONOSCOPY 03/03/2024 COLORECTAL CANCER SCREENING 03/03/2024 INFLUENZA VACCINE 10/21/2024 02/03/2017, 02/03/2017 HEPATITIS C SCREENING Completed 06/13/2022 Procedures Procedure Name Priority Date/Time Associated Diagnosis Comments HEPATITIS C ANTIBODY Routine 06/13/2022 10:35 AM EDT Encounter for general adult medical examination with abnormal findings Need for hepatitis C screening test SCANNED - MAMMO 09/11/2021 from Last 3 Months or Most Recently Relevant to Health Maintenance Results * Hepatitis C Antibody (06/13/2022 10:35 AM EDT) Hep C Virus Ab Non Reactive Non Reactive [facility] Comment: HCV antibody alone does not differentiate between previously resolved infection and active infection. Equivocal and Reactive HCV antibody results should be followed up with an HCV RNA test to support the diagnosis of active HCV infection. Blood Structure of right upper limb / Unknown 06/13/2022 10:35 AM EDT 06/14/2022 Comment:Blood Release to pat i Narrative [facility] (AMBULATORY) - 06/14/2022 1:06 PM EDT Performed at: 01 - [facility] [address] [place] [phone] Drawing In Hand: Inocente Funk PhD, Phone: [phone] us nAtony Gutierrez MD LAB BLOOD ORDERABLES Final Res ult [facility] [address] [place] [address], [facility] [address] [place] [address], [place] [phone] * SCANNED - MAMMO (09/11/2021) Anatomical Region Laterality Modality Other us Antony Gutierrez MD CHART REVIEW TABS Final Res ult from Last 3 Months or Most Recently Relevant to Health Maintenance Insurance [facility] MEDICARE REPLACEMENT Care Teams Assistant Portfolio Manager Relationship Specialty Start Date End Date Antony Gutierrez MD [address] [place] [address] [place] [address] PCP - General Internal Medicine 06/13/22
--- NOTE | 2025-01-05 15:15 | MM_ITS ---
PROCEDURE INFORMATION: Exam: MG Bilateral Screening 3D Mammography Exam date and time: 01/05/2025 3:19 PM Age: 54 years old Clinical indication: Screening exam. TECHNIQUE: Imaging protocol: Bilateral Screening tomosynthesis and 2D mammography including computer-aided detection (CAD) when performed. COMPARISON: MG MM DIG SC MAMM IMPLANT BI CAD 11/27/2023 7:49 AM FINDINGS: MAMMOGRAPHY: Breast composition: The breasts are heterogeneously dense, which may obscure small masses. Mass: No suspicious masses. Architectural distortion: None. Calcifications: No suspicious calcifications. Asymmetric density: None. Skin thickening: None. Axillary adenopathy: None. IMPRESSION: No mammographic evidence of malignancy. Annual screening is recommended unless otherwise clinically indicated. ASSESSMENT: BI-RADS Category 1: Negative.
== END 2025-01-05 23:59 | disposition home or self-care (01) ==
LOC: RAD 15:07
PROVIDERS: PCP Family Medicine; Visit Provider Family Medicine
DX: Z12.31 Encounter for screening mammogram for malignant neoplasm of breast (principal); R92.333 Mammographic heterogeneous density, bilateral breasts
CPT/HCPCS: 77063; 77067

== ENCOUNTER 2025-01-10 06:52 | Outpatient (CLI) | payer MEDICARE, SELFPAY ==
--- OUTSIDE RECORDS SUMMARY | 2025-01-10 06:55 | XMS_ITS | Clinical Summary ---
Author Organization [facility] Address [facility] [place] [address] Care Team Providers Care Digital Advertising Analyst Name Role Phone Tabatha Villalta Primary Care Provider [phone] Family History Medical History Relation Name Comments [...] Plan of Treatment Not on file Insurance [facility] MOHSEN TURIN [place] AGU[place] [id number] [facility] MEDICARE Care Teams Digital Advertising Analyst Relationship Specialty Start Date End Date Tabatha Villalta PA [address] [place] [address] PCP - General 08/03/20
--- OUTSIDE RECORDS SUMMARY | 2025-01-10 06:55 | XMS_ITS | Clinical Summary ---
[facility] Organization [facility] Address [address] [place] [address] Care Team Providers Care Ecological Modeler Name Role Phone Antony Gutierrez MD Primary Care Provider [phone] Allergies No known active allergies Medications cholecalciferol [...] Comment:Blood Release to pat i Narrative [facility] (AMBULATORY) - 06/14/2022 1:06 PM EDT Performed at: 01 - [facility] [address] [place] [id number] Dental Insurance Biller: Inocente Funk PhD, Phone: [phone] us Antony Gutierrez MD LAB BLOOD ORDERABLES Final Res ult [facility] [address] [place] [address], [facility] [address] [place] [address], [place] [phone] * SCANNED - MAMMO (09/11/2021) Anatomical Region Laterality Modality Other us Antony Gutierrez MD CHART REVIEW TABS Final Res ult from Last 3 Months or Most Recently Relevant to Health Maintenance Insurance [facility] MEDICARE REPLACEMENT Care Teams Ecological Modeler Relationship Specialty Start Date End Date Antony Gutierrez MD [address] [place] [address] [place] [address] PCP - General Internal Medicine 06/13/22
--- NOTE | 2025-01-10 07:00 | CT_ITS ---
FINAL REPORT CLINICAL HISTORY: lung cancer screening current smoker 1/2ppd x40 years COMPARISON: 08/18/2023 FINDINGS: CT CHEST LOW DOSE SCREENING HISTORY: Screening exam for lung cancer. DOSE: CTDI vol: 2.90 mGy, DLP: 97.42 mGy*cm TECHNIQUE: Axial CT without IV contrast administration using low dose protocol. This study was performed with techniques to keep radiation doses as low as reasonably achievable, (ALARA). Individualized dose reduction techniques using automated exposure control or adjustment of mA and/or kV according to the patient's size were employed. No acute lung disease is present. No pulmonary lesions are seen suspicious for neoplasm. No pleural or pericardial effusion is seen. No adenopathy or mass lesion is present. IMPRESSION: No evidence of lung cancer LUNG RADS CATEGORY 1 RECOMMENDATION: 12 month LDCT follow up Reviewed, Interpreted and Dictated by Jan Tracy MD Transcribed by Janene Nuñez Authenticated and [facility]
== END 2025-01-10 23:59 | disposition home or self-care (01) ==
LOC: RAD 06:53
PROVIDERS: PCP Family Medicine; Visit Provider Family Medicine
DX: Z12.2 Encounter for screening for malignant neoplasm of respiratory organs (principal); F17.210 Nicotine dependence, cigarettes, uncomplicated; Z71.6 Tobacco abuse counseling
CPT/HCPCS: 71271